=== PATIENT | male | born 1970 | race Caucasian/White ===

== ENCOUNTER → 2018-05-19 07:51 | Outpatient (CLI) | payer BC, SELFPAY ==
--- NOTE | 2018-05-19 07:57 | US_ITS ---
US abdomen limited History:Nausea, vomiting, upper abdominal discomfort Ordering Physician:Link Razo MD Patient Age: 47 years Comparison:None Findings: Pancreas:Unremarkable. No obvious mass or abnormal fluid collection. No ductal dilatation Liver:No focal liver lesions demonstrated. Homogeneous echogenicity. No intrahepatic biliary ductal dilatation evident Right Kidney:Unremarkable. Normal size and echogenicity. No hydronephrosis Gallbladder:No gallstones, gallbladder wall thickening, pericholecystic fluid, or biliary dilatation. There is sludge present within the gallbladder. Impression: 1. No gallstones, gallbladder wall thickening, pericholecystic fluid, or biliary ductal dilatation. 2. Gallbladder sludge is present
== END ==
PROVIDERS: Family Provider Family Medicine; PCP Family Medicine; Visit Provider Family Medicine
DX: R10.13 Epigastric pain (principal); R11.2 Nausea with vomiting, unspecified
CPT/HCPCS: 76705

== ENCOUNTER → 2018-06-04 10:14 | Outpatient (CLI) | payer BC, SELFPAY ==
--- NOTE | 2018-06-04 10:45 | NM_ITS ---
NM hepatobiliary w pharm HISTORY: ITS.REASON: EPI PAIN AND GB SLUDGE ORDERING PHYSICIAN: Link Razo MD PATIENT AGE: 47 years COMPARISON: None DOSE: 8.52 mCi technetium Choletec The patient drank ensure for fatty meal. There was mild pain after the fatty meal FINDINGS: Homogeneous activity is present within the hepatic parenchyma. Activity is present in the gallbladder by 15 minutes. Activity is present in the small bowel by 30 minutes. The gallbladder ejection fraction is calculated to be 95% The patient reported some mild pain during the fatty meal. IMPRESSION: Unremarkable hepatobiliary scan and gallbladder ejection fraction. No evidence of common or cystic duct obstruction with normal gallbladder ejection fraction
== END ==
PROVIDERS: Family Provider Family Medicine; PCP Family Medicine; Visit Provider Family Medicine
DX: R10.13 Epigastric pain (principal); K82.8 Other specified diseases of gallbladder
CPT/HCPCS: 78227; A9537

== ENCOUNTER → 2019-04-16 12:20 | Outpatient (CLI) | payer OTHER, SELFPAY ==
--- NOTE | 2019-04-16 12:59 | MR_ITS ---
MR head/brain wo/w con HISTORY: Slurred speech, right-sided weakness, balance, previous stroke ITS.REASON: RIGHT SIDED WEAKNESS ORDERING PHYSICIAN: NATHALY Vargas PATIENT AGE: 48 years Comparison: 04/15/2019 CT 08/17/2014 MRI TECHNIQUE: Standard multiplanar multiecho sequences are performed without and with gadolinium enhancement. FINDINGS: No midline shift or mass effect is evident. There are several areas of increased diffusion signal. There is a small linear area of increased diffusion signal in the left parietal lobe as well as a small focus of increased diffusion signal in the left thalamus laterally and in the left posterior parietal cortex medially. These areas are consistent with small areas of acute infarction. The multiple areas of distribution would suggest a possible embolic phenomenon. These areas do not show contrast enhancement and have developed since the previous exam. There are other abnormal areas as well including an ill-defined area of increased T2 signal in the left aspect of the corpus callosum measuring 9 mm. This does not show contrast enhancement. There is an additional area of increased T2 signal in the periventricular region on the right involving the right aspect of the corpus callosum with some ringlike enhancement. This area measures 11 x 8 mm. Central aspect of this region shows slight increased diffusion signal with hypointense ADC signal. In addition, there is a small focus of increased T2 signal involving the right roper radiata without restricted diffusion. There are other areas of periventricular and subcortical T2 white matter hyperintensity. There is involvement of the corpus callosum in the central and anterior aspect. Scattered areas of increased T2 also involves the deon. The upper cervical cord has an unremarkable appearance. No hydrocephalus. No midline shift. There is fluid signal within the right mastoid sinus. IMPRESSION: 1. Abnormal MRI of the brain. There are several small foci of respected diffusion which are in the left parietal lobe and left basal ganglia consistent with small areas of acute infarction. Embolic phenomenon is considered 2. In addition, there are abnormal white matter changes with lesions in the left aspect of the corpus callosum posteriorly and an enhancing lesion in the right aspect of the corpus callosum anteriorly. There is increased T2 signal involving the mid and anterior aspect of the corpus callosum. These findings are suspicious for multiple sclerosis.. Metastatic disease would be included in the differential diagnosis. 3. There are other periventricular and white matter ischemic gliotic changes noted as well. 4. Recommend neurological consult for further evaluation.
[2019-04-16 13:11] LABS: Blood Urea Nitrogen 21 mg/dL (7-18); Creatinine,Serum 1.23 mg/dL (0.70-1.30); Estimated Glomerular Filt Rate 63 ml/min (>60); GFR (African American) 76 ML/MIN (>60)
== END ==
PROVIDERS: PCP Family Medicine; Visit Provider Physician Assistant
DX: R53.1 Weakness (principal)
CPT/HCPCS: 36415; 70553; 82565; 84520

== ENCOUNTER → 2019-06-17 09:42 | Outpatient (CLI) | payer OTHER, SELFPAY ==
--- NOTE | 2019-06-17 09:48 | MR_ITS ---
MR head/brain wo/w con HISTORY: Right-sided weakness, slurred speech, weakness, recent stroke ITS.REASON: RIGHT SIDED WEAKNESS ORDERING PHYSICIAN: NATHALY Vargas PATIENT AGE: 48 years Comparison: 04/16/2019 TECHNIQUE: Standard multiplanar multiecho sequences are performed without and with gadolinium enhancement. FINDINGS: There is a new small lobular area of restricted diffusion within the left aspect of the deon centrally medial to the red nucleus consistent with an area of acute lacunar infarction measuring 8 x 5 mm. This was not present on 04/16/2019. This is isointense on T1 and shows slight increased T2 signal. This is hypointense on the ADC images. Small area of slight increased diffusion signal is noted within the left thalamus laterally and within the head of the caudate on the right as before slightly less intense consistent with areas of subacute infarction. No acute hemorrhage evident. Scattered areas of increased T2 signal are noted within the deon, left inferior cerebellar hemisphere, periventricular and subcortical white matter similar to the previous exam. Abnormal signal intensity noted within the corpus callosum as before and within the periventricular white matter which is suspicious for multiple sclerosis. No enhancing lesions are evident. IMPRESSION: 1. There is an acute lacunar infarction within central aspect of the deon on the left medial to the red nucleus. 2. Subacute lacunar infarctions of the left basal ganglia and right head of the caudate. 3. Periventricular ischemic gliotic change 4. Multiple lesions of the corpus callosum and periventricular white matter suspicious for multiple sclerosis.
[2019-06-17 10:20] LABS: Blood Urea Nitrogen 30 mg/dL (7-18); Creatinine,Serum 1.66 mg/dL (0.70-1.30); Estimated Glomerular Filt Rate 44 ml/min (>60); GFR (African American) 54 ML/MIN (>60)
== END ==
PROVIDERS: PCP Physician Assistant; Visit Provider Physician Assistant
DX: R53.1 Weakness (principal)
CPT/HCPCS: 36415; 70553; 82565; 84520; A9576

== ENCOUNTER 2019-06-17 11:57 | Inpatient (IN) ==
--- NOTE | 2019-06-17 12:46 | Emergency Department Note ---
ED Disposition Clinical Impression: Acute CVA (cerebrovascular accident) Diabetic ketoacidosis Qualifiers: Diabetes mellitus type: type 1 Diabetes mellitus complication detail: without coma Qualified Code(s): E10.10 - Type 1 diabetes mellitus with ketoacidosis without coma Disposition: Admitted As Inpatient Condition on Discharge: Fair - Critical Care Critical Care Time: Yes Attestation: On 06/17/19, the high probability of a clinically significant, sudden or life threatening deterioration of the following system(s) required my full and direct attention, intervention and personal management. The time I documented below is in addition to time spent performing reported procedures but includes the following listed in this critical care notation. Total Critical Care Time: 45 Vital system(s) involved:: Metabolic Failure My critical care processes included: Assessment & monitoring of V/S, Initial and Re-exams, Data Review/Interpretation, Coordinating Care, Medication Orders and management, Documentation Medical Decision Making - Bryant Inquiry Pt receiving controlled substance: No Vital Signs: 06/17/19 12:12 06/17/19 12:48 Temperature 97.9 F Temperature Source Oral Pulse Rate [Left Radial] 84 62 Respiratory Rate 20 Blood Pressure [Right Arm] 159/84 H 148/74 H Blood Pressure Mean [Right Arm] 109 98 Blood Pressure Source [Right Arm] Automatic Cuff Blood Pressure Position [Right Arm] Sitting 02 Sat by Pulse Oximetry 97 100 Oxygen Delivery Method Room Air - Lab Data Lab Results 06/17/19 12:11: POC Glucose 600 H* 06/17/19 12:30: Phosphorus 3.6, Magnesium 2.1 06/17/19 12:48: VBG pH 7.28 L, VBG pCO2 51.8 H, VBG pO2 86.6 H, VBG HCO3 24.0, VBG Total CO2 25.6, VBG O2 Saturation 95.3 H, VBG Base Excess -2.7 L 06/17/19 12:49: WBC 7.0, RBC 4.33 L, Hgb 12.8 L, Hct 40.4 L, MCV 93.2, MCH 29.5, MCHC 31.7 L, RDW 13.1, Plt Count 186, MPV 8.2, Neut % (Auto) 74.3, Lymph % (Auto) 19.9, [place] % (Auto) 3.3, Eos % (Auto) 1.3, Baso % (Auto) 1.2, Neut # (A uto) 5.2, Lymph # (Auto) 1.4, [place] # (Auto) 0.2, Eos # (Auto) 0.1, Baso # (Auto) 0.1 06/17/19 12:49: Sodium 129 L, Potassium 5.4 H, Chloride 93 L, Carbon Dioxide 22 D, Anion Gap 19.4 H, BUN 30 H, Creatinine 1.70 H, Estimated Creat Clear 56, Estimated GFR 43 L, Est GFR ( Amer) 52 L, Glucose 610 H*, Calcium 9.5, Total Bilirubin 0.7, AST 11 L D, ALT 29, Alkaline Phosphatase 126 H, Total Prote in 7.0, Albumin 3.9, Globulin 3.1, Albumin/Globulin Ratio 1.3, Acetone Level Small 06/17/19 12:49: Urine Color Yellow, Urine Appearance Clear, Urine pH 5.5, Ur Specific [place] <= 1.005, Urine Protein Trace, Urine Glucose (UA) 3+, Urine Ketones 1+, Urine Blood Trace-i, Urine Nitrate Negative, Urine Bilirubin Negative, Urine Urobilinogen 0.2, Ur Leukocyte Esterase Negative, Urine RBC Occasional, Urine Bacteria Trace Result diagrams: 06/17/19 12:49 06/17/19 12:49 Orders (Tests/Meds): ED MEDICATIONS Generic Name Dose Route Start Last Admin Trade Name Rajeshq PRN Reason Stop Dose Admin Aspirin 81 mg 06/17/19 21:00 Aspirin 81mg Chewable Tablet PO 07/17/19 20:59 HS [facility] Clopidogrel Bisulfate 75 mg 06/17/19 21:00 Plavix 75mg Tablet PO 07/17/19 20:59 HS [facility] Insulin Human Regular 100 unit 101 mls @ 7.559 mls/hr 06/17/19 14:33 / Sodium Chloride IV 07/17/19 13:44 .[id number] RAMESH Protocol 0.1 UNITS/KG/HR Sodium Chloride 1,000 mls @ 150 mls/hr 06/17/19 14:33 Sod Chlor 0.9% 1000ml Bag IV 07/17/19 14:32 .[id number] RAMESH Non-Formulary Medication 80 mg 06/18/19 09:00 Atorvastatin Calcium [Atorvastatin 80mg Tab] PO 07/18/19 08:59 DAILY RAMESH Non-Formulary Medication 40 mg 06/18/19 09:00 Duloxetine Hcl PO 07/18/19 08:59 DAILY RAMESH Discontinued Medications Generic Name Dose Route Start Last Admin Trade Name Stas IRWINN Reason Stop Dose Admin Sodium Chloride 1,000 mls @ 999 mls/hr 06/17/19 12:30 06/17/19 12:50 Sod Chlor 0.9% 1000ml Bag IV 06/17/19 13:30 999 mls/hr .Q1H1M RAMESH Administration Insulin Human Regular 100 unit 101 mls @ 7.559 mls/hr 06/17/19 13:45 06/17/19 14:26 / Sodium Chloride IV 07/17/19 13:44 7.559 mls/hr .[id number] RAMESH Administration Protocol 0.1 UNITS/KG/HR ORDERS Category Date Time Status Basic Metabolic Panel Q12H Lab 06/18/19 06:00 Ordered Basic Metabolic Panel Q12H Lab 06/18/19 18:00 Ordered Basic Metabolic Panel Q12H Lab 06/19/19 06:00 Ordered Basic Metabolic Panel Q4H Lab 06/17/19 14:36 Received Basic Metabolic Panel Q4H Lab 06/17/19 18:33 Ordered Basic Metabolic Panel Q4H Lab 06/17/19 22:33 Ordered Basic Metabolic Panel Q4H Lab 06/18/19 02:33 Ordered - CT Data CT Scan: Head Time Received: 13:[address] Reviewed: Yes: I have viewed the radiologist's interpretation Findings Narrative: IMPRESSION: 1. Old bilateral lacunar infarctions. 2. No acute intracranial hemorrhage Dictated By: Tristen Gomez MD 06/17/19 1228 - Physician Consults Physician Consulted: [facility] stroke team Time: 13:55 Reason -: Neurological Eval/Care Comment/Response: States the patient does not need to be transferred to [facility]. Can be admitted here for treatment of his DKA. No change in his platelet therapy or any other stroke management needed at this time. Can follow-up in their clinic as an outpatient. Additional Consult: Og Chavez Time: 14:18 Reason -: Admission Comment/Response: Agrees to admit the patient to the hospital. We discussed the patient's clinical information, including history, exam, laboratory and radiology results and ED course. Per hospital procedure, I will write temporary bridge inpatient orders on the patient. Specific orders requested by the admitting physician: DKA protocol Additional Consult: Dung Time: 14:44 Reason -: Admission Comment/Response: The patient is listed as being Dr. Chavez's patient on our track board, but he actually is Dr. Razo's patient. Admission will be changed to Dr. Razo rather than Dr. Chavez. Case discussed. Medical Decision Narrative: MRI brain, outpatient study today: IMPRESSION: 1. There is an acute lacunar infarction within central aspect of the deon on the left medial to the red nucleus. 2. Subacute lacunar infarctions of the left basal ganglia and right head of the caudate. 3. Periventricular ischemic gliotic change 4. Multiple lesions of the corpus callosum and periventricular white matter suspicious for multiple sclerosis. Dictated By: Tristen Gomez MD 06/17/19 1221 General Adult HPI - General Chief complaint: Altered Mental Status Stated complaint: CASSI on Friday and pupils are different sizes Time Seen by Provider: 06/17/19 12:43 Mode of Arrival: Ambulatory Limitations: No Limitations Description of Symptoms (Recalled from ER Triage Doc. by RN): family states that pt had a TIA last Friday, was here this morning getting an MRI when the noticed that his pupils were different sizes. States he has been sluggish and like it takes a moment to say what the wants to say. - History of Present Illness HPI narrative: Patient brought in by his . He was having a brain MRI today when the turfgrass technician noticed that his pupils were of unequal size. His called the stroke team at [facility] and was advised to bring him to the closest emergency department. He was seen by me in this emergency department 2 days ago. At that time he was having some thick tongue speech and some difficulty with ambulation, blurry vision and diplopia with distant vision. CT scan showed nothing acute. Case was discussed with stroke team at [facility] and with his primary care provider. The patient declined admission to the hospital and arrangements were were made for outpatient follow-up. He was seen in the primary care provider's office yesterday and had his MRI scan of the brain today. He says his symptoms are unchanged since 2 days ago. His says he actually was better yesterday. He has had previous strokes. He had 2 strokes earlier this year. He was hospitalized at [facility]. He has residual right hemiparesis. He has residual intermittent problems with speech and ambulation. He is getting physical therapy for these problems. The patient is diabetic. His blood sugar was in the 200s yesterday. He uses Tresiba insulin twice a day, 30 units. He uses a sliding scale with each meal. He has not checked his blood sugar today. He is only eaten a banana today. He has not used any insulin today. - Related Data Home Medications Medication Instructions Recorded Confirmed Atorvastatin Calcium [Atorvastatin 80 mg PO DAILY 04/15/19 06/17/19 80mg Tab] Clopidogrel Bisulfate [Plavix 75mg 75 mg PO DAILY 04/15/19 06/17/19 Tab] Duloxetine HCl 40 mg PO DAILY 04/15/19 06/17/19 Insulin Degludec [Tresiba 100 unit SQ DAILY 04/15/19 06/17/19 Flextouch U-100] Insulin Aspart [Novolog] 14 unit SQ TID 06/06/19 06/17/19 [place]-3 Fatty Acids [Fish Oil] 300 mg PO DAILY 06/15/19 06/17/19 raNITIdine HCl [Ranitidine HCl] 150 mg PO DAILY 06/15/19 06/17/19 Allergies Allergy/AdvReac Type Severity Reaction Status Date / Time No Known Allergies Allergy Verified 04/15/19 09:01 [facility] History - Hepatitis A Screen Drug use history?: No High risk sexual behaviors?: No History of sexually transmitted infection?: No Currently employed?: No Childcare worker?: No Do you have indoor plumbing?: Yes Do you have electricity?: Yes Attestation statement:: This patient has been screened for Hepatitis A risk factors. I have reviewed the patient's past medical history: Yes Medical History: Reports:: Diabetes Mellitus Type 2 - Social History Smoking Status: Current every day smoker Tobacco Type: cigarettes # Packs/Day (cigarettes): 2 Alcohol Intake: never Occupational Status: employed, other ROS Obtained: Yes All systems reviewed & no additional complaints - Constitutional Constitutional: Denies fever(s) - Eyes Eyes: Reports blurry vision, Reports diplopia - Cardiovascular Cardiovascular: Denies chest pain - Respiratory Respiratory: No dyspnea - Gastrointestinal Gastrointestingal: Denies: abdominal pain, diarrhea, vomiting - Neurologic Neurologic: Reports unsteadiness, Reports focal weakness (Chronic right hemiparesis), Denies headache(s) Physical Exam - General General appearance: alert, in no apparent distress - Head Head exam: atraumatic, normocephalic - Eye Eye exam: Present: EOMI, other (Right pupil 1-2 mm. Left pupil 3-4 mm. Reactive.) - ENT ENT exam: Present: mucous membranes dry - Neck Neck exam: Present: normal inspection, trachea midline - Chest Chest inspection: Present: normal inspection, symmetric chest wall rise - Respiratory Respiratory exam: Present: normal lung sounds bilaterally. Absent: respiratory distress - Cardiovascular Cardiovascular exam: Present: regular rate, normal rhythm, normal heart sounds - Abdominal Exam Abdominal exam: Present: soft, normal bowel sounds. Absent: distention, tenderness - Extremities Exam Extremities exam: Present: normal inspection - Neurological Exam Neurological exam: Present: alert, oriented X3 - Psychiatric Psychiatric exam: Present: normal affect, normal mood - Skin Skin exam: Present: warm, dry
[2019-06-17 12:54] LABS: Microscopic, Urine URINE MICROSCOPIC (MICROSCOPIC)
[2019-06-17 12:55] LABS: Appearance,Urine CLEAR (Clear); Bilirubin,Urine Negative (Negative); Blood, Urine TRACE-I (Negative); Color,Urine YELLOW (Yellow); Glucose,Urine (UA) 3+ (Negative); Ketones,Urine 1+ (Negative); Leukocyte Esterase,Urine Negative (Negative); PH,Urine 5.5 (5.0-8.5); Protein,Urine TRACE (Negative); Specific Gravity, Urine <= 1.005 (1.005-1.030); Urobilinogen,Urine 0.2 EU/dl (0.2)
[2019-06-17 12:57] LABS: Basophils # 0.1 K/mm3 (0-0.2); Basophils % 1.2 % (0.1-2.0); Eosinophils # 0.1 K/mm3 (0.0-0.4); Eosinophils % 1.3 % (0.1-12.0); Hematocrit 40.4 % (42.0-52.0); Hemoglobin 12.8 g/dL (14.1-18.0); Lymphocytes # 1.4 K/mm3 (0.7-4.5); Lymphocytes % 19.9 % (10-50); Mean Corpuscular HGB Conc 31.7 g/dL (31.8-35.4); Mean Corpuscular Volume 93.2 fl (80-94); Mean Platelet Volume 8.2 fl (7.4-10.4); Monocytes # 0.2 K/mm3 (0.1-1.0); Monocytes % 3.3 % (1.7-9.3); Neutrophils # 5.2 K/mm3 (1.8-7.8); Neutrophils % 74.3 % (37.0-80.0); Platelet Count 186 K/mm3 (142-424); Red Blood Count 4.33 M/mm3 (4.60-6.20); Red Cell Distribution Width 13.1 % (11.5-17.5)
[2019-06-17 13:00] LABS: Bacteria,Urine Trace /lpf; RBC,Urine Occasional #/hpf (0-3)
[2019-06-17 13:03] LABS: VBG Base Excess -2.7 mmol/L (-2.4-2.3); VBG Oxygen Saturation 95.3 % (50-70); VBG PCO2 51.8 mmol/L (35-51); VBG PH 7.28 mmol/L (7.31-7.41); VBG PO2 86.6 mmol/L (28-40); VBG Total CO2 25.6 mmol/L (23-27)
[2019-06-17 13:10] LABS: Alanine Aminotransferase 29 U/L (12-78); Albumin Level 3.9 gm/dL (3.4-5.0); Albumin/Globulin Ratio 1.3 (1.1-1.8); Alkaline Phosphatase 126 U/L (46-116); Anion Gap 19.4 mEq/L (5-15); Aspartate Amino Transferase 11 U/L (15-37); Bilirubin,Total 0.7 mg/dL (0.2-1.0); Blood Urea Nitrogen 30 mg/dL (7-18); Calcium 9.5 mg/dL (8.5-10.1); Carbon Dioxide 22 mmol/L (21.0-32.0); Chloride 93 mmol/L (98-107); Globulin 3.1 gm/dl (1.3-3.2); Sodium 129 mmol/L (136-145)
[2019-06-17 13:13] LABS: Glucose 610 mg/dL (74-106)
[2019-06-17 13:14] LABS: Acetone, Serum (Rapid) Small (None Detect)
[2019-06-17 13:56] LABS: Phosphorous 3.6 mg/dL (2.4-4.9)
[2019-06-17 14:58] LABS: Anion Gap 19.1 mEq/L (5-15); Calcium 9.1 mg/dL (8.5-10.1)
--- NOTE | 2019-06-17 15:02 | History & Physical Report ---
*Admission Date: 06/17/19 <Yojana Cole - 06/17/19 15:06> *Chief complaint: right sided weakness, pupils unequal <Yojana Cole - 06/17/19 15:06> *History of present illness: Mr. Flores is a 48-year-old male who was just recently seen in the emergency room a few days ago. At that time he was having some slurred speech and difficulty with ambulation as well as right sided weakness. His felt he was having another stroke and took him to the emergency room. A CT scan showed nothing acute and the case was discussed with the stroke team at . They felt he would need an MRI but not a transfer. The patient declined admission and followed up in the office yesterday. It was felt he was having another stroke and an MRI with and without contrast was ordered of the brain for 06/17/2019. Yesterday in the office he was feeling a little bit better. His strength had improved slightly as had his balance. He states he began having double vision today before doing the MRI and the two way radio technician noticed that one pupil was smaller than the other. His called the stroke team at and they advised him to go to the closest emergency department, therefore he presented back to the ER. A repeat CT scan showed the old strokes but nothing acute. His glucose was 600 upon presentation to the ER and he did have acetone in his blood. He did not take his morning insulin. His MRI showed an acute lacunar infarction within the central aspect of the deon as well as subacute lacunar infarctions of the left basal ganglia and right head of the caudate. There were periventricular ischemic gliotic changes and multiple lesions of the corpus callosum and periventricular white matter suspicious for MS. The case was again discussed with the stroke team at and his MRI was reviewed with the physician at . They did not feel he would require transfer. They felt his normal medications could be continued and he would need a work-up for DKA. Of note he has had 2 strokes earlier this year and was hospitalized at the [facility]. He has some residual right hemiparesis and some residual problems with speech and ambulation. He is currently undergoing physical therapy. <Yojana Cole - 06/17/19 16:02> [facility] History I have reviewed the patient's past medical history: Yes <Yojana Cole 06/17/19 15:06> Medical History: Reports:: Anxiety, Cerebrovascular Accident, Diabetes Mellitus Type 1, Gall Bladder Disease, Gastroesophageal Reflux Disease(GERD), Hypertension <Yojana Cole 06/17/19 15:06> *Have you ever received a pneumonia vaccine?: No <Yojana Cole 06/17/19 15:06> *Have you received a flu vaccine this season?: No <Yojana Cole 06/17/19 15:06> Laterality Cases: Bilateral: Myringotomy (Ear Tubes), Tonsillectomy <Yojana Cole 06/17/19 15:06> Other Surgeries: Yes: Other (right forearm) <Yojana Cole 06/17/19 15:06> - *Social History Smoking Status: Current every day smoker <Yojana Cole 06/17/19 15:06> Tobacco Type: cigarettes <Yojana Cole 06/17/19 15:06> # Packs/Day (cigarettes): 1 <Yojana Cole 06/17/19 15:06> Alcohol Intake: never <Yojana Cole 06/17/19 15:06> *Occupational Status:: employed, other <Yojana Cole 06/17/19 15:06> *Travel in the last 8 weeks: None <Yojaan Cole 06/17/19 15:06> Family Hx:: Diabetes <Yojana Cole 06/17/19 16:02> Review of Systems - Constitutional Reports weakness (right side), Denies chills, Denies fever(s) <Yojana Cole 06/17/19 16:02> - Eyes Reports blurry vision, Reports double vision, Denies loss of vision <Yojana Cole 06/17/19 16:02> - ENT Denies nasal congestion, Denies sore throat <Yojana Cole 06/17/19 16:02> - *Cardiovascular Denies chest pain, Denies shortness of breath, Denies rapid, pounding, or irregular heartbeat <Yojana Cole 06/17/19 16:02> - *Respiratory Denies cough, Denies shortness of breath <Yojana Cole 06/17/19 16:02> - *Gastrointestinal Denies abdominal pain, Denies loose stools, Denies nausea, Denies vomiting <Yojana Cole - 06/17/19 16:02> - *Genitourinary Denies difficulty urinating, Denies painful urination <Yojana Cole - 06/17/19 16:02> - *Musculoskeletal Denies joint pain <Yojana Cole - 06/17/19 16:02> - *Neurologic Reports abnormal speech, Reports unsteadiness, Reports localized weakness (Chronic right hemiparesis but worse in the past few days), Denies headache(s) <Yojana Cole - 06/17/19 16:02> Meds Home Medications Medication Instructions Recorded Confirmed Type Atorvastatin Calcium [Atorvastatin 80 mg PO DAILY 04/15/19 06/17/19 History 80mg Tab] Clopidogrel Bisulfate [Plavix 75mg 75 mg PO DAILY 04/15/19 06/17/19 History Tab] Insulin Degludec [Tresiba 15 unit SQ BID 04/15/19 06/17/19 History Flextouch U-100] Insulin Aspart [Novolog] 14 unit SQ TID 06/06/19 06/17/19 History [place]-3 Fatty Acids [Fish Oil] 300 mg PO DAILY 06/15/19 06/17/19 History raNITIdine HCl [Ranitidine HCl] 150 mg PO DAILY 06/15/19 06/17/19 History Aspirin [Aspirin 81mg EC Tab] 81 mg PO DAILY 06/17/19 06/17/19 History Cholecalciferol (Vitamin D3) 5,000 unit PO DAILY 06/17/19 06/17/19 History [Vitamin D3] Duloxetine HCl 30 mg PO DAILY 06/17/19 06/17/19 History Montelukast Sodium [Montelukast 10 mg PO HS 06/17/19 06/17/19 History 10mg Tab] <Link Razo - 06/17/19 20:08> Allergies Allergy/AdvReac Type Severity Reaction Status Date / Time No Known Allergies Allergy Verified 04/15/19 09:01 <Link Razo - 06/17/19 20:08> Exam Vital signs and Labs for Last 24 Hours: Temp Pulse Resp BP Pulse Ox 97.9 F 77 19 152/86 H 97 06/17/19 15:48 06/17/19 16:00 06/17/19 16:00 06/17/19 16:00 06/17/19 16:32 Laboratory Results - last 24 hr 06/17/19 12:11: POC Glucose 600 H* 06/17/19 12:30: Phosphorus 3.6, Magnesium 2.1 06/17/19 12:48: VBG pH 7.28 L, VBG pCO2 51.8 H, VBG pO2 86.6 H, VBG HCO3 24.0, VBG Total CO2 25.6, VBG O2 Saturation 95.3 H, VBG Base Excess -2.7 L 06/17/19 12:49: WBC 7.0, RBC 4.33 L, Hgb 12.8 L, Hct 40.4 L, MCV 93.2, MCH 29.5, MCHC 31.7 L, RDW 13.1, Plt Count 186, MPV 8.2, Neut % (Auto) 74.3, Lymph % (Auto) 19.9, Stephens % (Auto) 3.3, Eos % (Auto) 1.3, Baso % (Auto) 1.2, Neut # (Au to) 5.2, Lymph # (Auto) 1.4, Stephens # (Auto) 0.2, Eos # (Auto) 0.1, Baso # (Auto) 0.1 06/17/19 12:49: Sodium 129 L, Potassium 5.4 H, Chloride 93 L, Carbon Dioxide 22 D, Anion Gap 19.4 H, BUN 30 H, Creatinine 1.70 H, Estimated Creat Clear 56, Estimated GFR 43 L, Est GFR ( Amer) 52 L, Glucose 610 H*, Calcium 9.5, Total Bilirubin 0.7, AST 11 L D, ALT 29, Alkaline Phosphatase 126 H, Total Protein 7.0, Albumin 3.9, Globulin 3.1, Albumin/Globulin Ratio 1.3, Acetone Level Small 06/17/19 12:49: Urine Color Yellow, Urine Appearance Clear, Urine pH 5.5, Ur Specific [place] <= 1.005, Urine Protein Trace, Urine Glucose (UA) 3+, Urine Ketones 1+, Urine Blood Trace-i, Urine Nitrate Negative, Urine Bilirubin Negative, Urine Urobilinogen 0.2, Ur Leukocyte Esterase Negative, Urine RBC Occasional, Urine Bacteria Trace 06/17/19 14:36: Sodium 132 L, Potassium 5.1, Chloride 96 L, Carbon Dioxide 22, Anion Gap 19.1 H, BUN 30 H, Creatinine 1.69 H, Estimated Creat Clear 56, Estimated GFR 43 L, Est GFR ( Amer) 52 L, Glucose 555 H*, Calcium 9.1 06/17/19 15:32: POC Glucose 491 H* 06/17/19 16:05: POC Glucose 431 H* 06/17/19 17:58: POC Glucose 386 H* 06/17/19 18:33: Sodium 136, Potassium 4.1, Chloride 101, Carbon Dioxide 27 D, Anion Gap 12.1, BUN 26 H, Creatinine 1.41 H, Estimated Creat Clear 62, Estimated GFR 53 L, Est GFR ( Amer) 65 D, Glucose 354 H D, Calcium 9.0 <[place],Link - 06/17/19 20:08> Temp Pulse Resp BP Pulse Ox 97.9 F 62 20 148/74 H 100 06/17/19 12:12 06/17/19 12:48 06/17/19 12:12 06/17/19 12:48 06/17/19 12:48 Laboratory Results - last 24 hr 06/17/19 12:11: POC Glucose 600 H* 06/17/19 12:30: Phosphorus 3.6, Magnesium 2.1 06/17/19 12:48: VBG pH 7.28 L, VBG pCO2 51.8 H, VBG pO2 86.6 H, VBG HCO3 24.0, VBG Total CO2 25.6, VBG O2 Saturation 95.3 H, VBG Base Excess -2.7 L 06/17/19 12:49: WBC 7.0, RBC 4.33 L, Hgb 12.8 L, Hct 40.4 L, MCV 93.2, MCH 29.5, MCHC 31.7 L, RDW 13.1, Plt Count 186, MPV 8.2, Neut % (Auto) 74.3, Lymph % (Auto) 19.9, Stephens % (Auto) 3.3, Eos % (Auto) 1.3, Baso % (Auto) 1.2, Neut # (Auto) 5.2, Lymph # (Auto) 1.4, Stephens # (Auto) 0.2, Eos # (Auto) 0.1, Baso # (Auto) 0.1 06/17/19 12:49: Sodium 129 L, Potassium 5.4 H, Chloride 93 L, Carbon Dioxide 22 D, Anion Gap 19.4 H, BUN 30 H, Creatinine 1.70 H, Estimated Creat Clear 56, Estimated GFR 43 L, Est GFR ( Amer) 52 L, Glucose 610 H*, Calcium 9.5, Total Bilirubin 0.7, AST 11 L D, ALT 29, Alkaline Phosphatase 126 H, Total Protein 7.0, Albumin 3.9, Globulin 3.1, Albumin/Globulin Ratio 1.3, Acetone Level Small 06/17/19 12:49: Urine Color Yellow, Urine Appearance Clear, Urine pH 5.5, Ur Specific [place] <= 1.005, Urine Protein Trace, Urine Glucose (UA) 3+, Urine Ketones 1+, Urine Blood Trace-i, Urine Nitrate Negative, Urine Bilirubin Negative, Urine Urobilinogen 0.2, Ur Leukocyte Esterase Negative, Urine RBC Occasional, Urine Bacteria Trace <Yojana Cole - 06/17/19 15:06> I & O for Last 24 hours: Intake & Output 06/14/19 06/15/19 06/16/19 06/17/19 23:59 23:59 23:59 23:59 Intake Total 1447 / 1447 Output Total 695 / 695 Balance 752 / 752 Weight 152 lb 8 oz <Link Razo - 06/17/19 20:08> Intake & Output 06/15/19 06/16/19 06/17/19 06/18/19 11:59 11:59 11:59 11:59 Weight 165 lb <Yojana Cole - 06/17/19 15:06> - Constitutional no acute distress <Yojana Cole - 06/17/19 16:02> - *Routine HEENT Exam Head: Present: normocephalic <Yojana Cole - 06/17/19 16:02> Eye: Present: EOMI (right pupil is smaller than the left) <Yojana Cole - 06/17/19 16:02> ENT: Present: mucous membranes dry <Yojana Cole - 06/17/19 16:02> - *Routine Neck Exam Present: supple. Absent: lymphadenopathy <Yojana Cole 06/17/19 16:02> - *Routine Respiratory Exam Present: CTA bilaterally <Yojana Cole 06/17/19 16:02> - *Routine Cardiovascular Exam Present: RRR <Yojana Cole 06/17/19 16:02> - *Routine Abdominal Exam Present: soft, normoactive bowel sounds. Absent: tenderness <Yojana Cole 06/17/19 16:02> - *Routine Extremities Exam Absent: cyanosis, clubbing, edema <Yojana Cole 06/17/19 16:02> - *Routine Skin Exam Present: warm. Absent: rash <Yojana Cole 06/17/19 16:02> - *Routine Neurological Exam Present: alert, oriented X3, motor deficit (on the right) <Yojana Cole 06/17/19 16:02> speech is still slightly slurred <Yojana Cole 06/17/19 16:02> H&P: Result - Impressions Head CT 1. Old bilateral lacunar infarctions. 2. No acute intracranial hemorrhage MRI brain, outpatient study today: 1. There is an acute lacunar infarction within central aspect of the deon on the left medial to the red nucleus. 2. Subacute lacunar infarctions of the left basal ganglia and right head of the caudate. 3. Periventricular ischemic gliotic change 4. Multiple lesions of the corpus callosum and periventricular white matter suspicious for multiple sclerosis. <Yojana Cole 06/17/19 16:02> Assessment and Plan (1) Acute CVA (cerebrovascular accident) Current visit: Yes Status: Acute Category: Medical Code(s): I63.9 - Cerebral infarction, unspecified (2) Diabetic ketoacidosis Current visit: Yes Status: Acute Qualifiers: Diabetes mellitus type: type 1 Diabetes mellitus complication detail: without coma Qualified Code(s): E10.10 - Type 1 diabetes mellitus with ketoacidosis without coma Category: Medical Code(s): E11.10 - Type 2 diabetes mellitus with ketoacidosis without coma (3) IDDM (insulin dependent diabetes mellitus) Current visit: No Status: Acute Category: Medical Code(s): E11.9 - Type 2 diabetes mellitus without complications; Z79.4 - FPC (current) use of insulin (4) History of CVA (cerebrovascular accident) Current visit: Yes Status: Acute Category: Medical Code(s): Z86.73 - Personal history of transient ischemic attack (TIA), and cerebral infarction without residual deficits (5) Hypertension Current visit: Yes Status: Chronic Category: Medical Code(s): I10 - Essential (primary) hypertension <Link Razo - 06/17/19 20:08> (1) Acute CVA (cerebrovascular accident) Current visit: Yes Status: Acute Category: Medical Code(s): I63.9 - Cerebral infarction, unspecified (2) Diabetic ketoacidosis Current visit: Yes Status: Acute Qualifiers: Diabetes mellitus type: type 1 Diabetes mellitus complication detail: without coma Qualified Code(s): E10.10 - Type 1 diabetes mellitus with ketoacidosis without coma Category: Medical Code(s): E11.10 - Type 2 diabetes mellitus with ketoacidosis without coma (3) IDDM (insulin dependent diabetes mellitus) Current visit: No Status: Acute Category: Medical Code(s): E11.9 - Type 2 diabetes mellitus without complications; Z79.4 - terminal carman (current) use of insulin (4) History of CVA (cerebrovascular accident) Current visit: Yes Status: Acute Category: Medical Code(s): Z86.73 - Pers onal history of transient ischemic attack (TIA), and cerebral infarction without residual deficits (5) Hypertension Current visit: Yes Status: Chronic Category: Medical Code(s): I10 - Essential (primary) hypertension <Yojana Cole - 06/17/19 15:47> - Assessment and plan all Dx Assessment and Plan for all problems:: Saw patient, agree with above note. <Link Razo - 06/17/19 20:08> The patient was admitted and started on insulin as well as IV fluids and some of his home medications. Will discuss further care with Dr. Razo. <Yojana Cole - 06/17/19 16:02>
--- NOTE | 2019-06-17 16:20 | Pharmacy Consult Notes ---
[facility] Pharmacy VTE Monitoring - Patient Demographics Admission date: 06/17/19 Report Date: 06/17/19 Time: 16:19 Allergies/Adverse Reactions: Patient Allergies No Known Allergies Allergy (Verified 04/15/19 09:01) Height: 1.73 m Weight: 69.173 kg Patient Problems: Current Active Problems (Updated 06/17/19 @ 15:06 by NATHALY Vargas) Diabetic ketoacidosis (Acute) Acute CVA (cerebrovascular accident) (Acute) History of CVA (cerebrovascular accident) (Acute) Hypertension (Chronic) - VTE Risk Labs: VTE Related Lab Results Hgb 12.8 g/dL (14.1-18.0) L 06/17/19 12:49 Hct 40.4 % (42.0-52.0) L 06/17/19 12:49 Plt Count 186 K/mm3 (142-424) 06/17/19 12:49 BUN 30 mg/dL (7-18) H 06/17/19 14:36 Creatinine 1.69 mg/dL (0.70-1.30) H 06/17/19 14:36 Estimated Creat Clear 56 mL/min (50-200) 06/17/19 14:36 Was VTE Risk Assessment Performed: Yes VTE Risk Level: Low Risk Clinical Trial Participant: No - Prophylaxis VTE Prophylaxis Ordered?: Yes Types of VTE Prophylaxis: TEDS Knee High
[2019-06-17 18:52] LABS: Anion Gap 12.1 mEq/L (5-15)
[2019-06-17 22:36] LABS: Calcium 9.1 mg/dL (8.5-10.1)
[2019-06-18 02:47] LABS: Anion Gap 10.5 mEq/L (5-15); Calcium 8.6 mg/dL (8.5-10.1)
[2019-06-18 06:12] LABS: Anion Gap 11.7 mEq/L (5-15); Calcium 8.6 mg/dL (8.5-10.1)
--- NOTE | 2019-06-18 08:20 | Progress Note ---
<Yojana Cole - Last Filed: 06/18/19 08:17> Internal Medicine - PN: Subj *Date: 06/18/19 *Time: 08:17 Interval history: Patient states he is feeling much better today. He wants to go home. He states he slept well last night and ate a good breakfast this morning. He denies any pain. He states his weakness is improving on the right side. Exam Vital signs and Labs for Last 24 Hours: Temp Pulse Resp BP Pulse Ox 98.8 F 72 16 160/83 H 99 06/18/19 07:48 06/18/19 06:00 06/18/19 06:00 06/18/19 06:00 06/18/19 06:00 Laboratory Results - last 24 hr 06/17/19 12:11: POC Glucose 600 H* 06/17/19 12:30: Phosphorus 3.6, Magnesium 2.1 06/17/19 12:48: VBG pH 7.28 L, VBG pCO2 51.8 H, VBG pO2 86.6 H, VBG HCO3 24.0, VBG Total CO2 25.6, VBG O2 Saturation 95.3 H, VBG Base Excess -2.7 L 06/17/19 12:49: WBC 7.0, RBC 4.33 L, Hgb 12.8 L, Hct 40.4 L, MCV 93.2, MCH 29.5, MCHC 31.7 L, RDW 13.1, Plt Count 186, MPV 8.2, Neut % (Auto) 74.3, Lymph % (Auto) 19.9, Bremer % (Auto) 3.3, Eos % (Auto) 1.3, Baso % (Auto) 1.2, Neut # (Auto) 5.2, Lymph # (Auto) 1.4, Bremer # (Auto) 0.2, Eos # (Auto) 0.1, Baso # (Auto) 0.1 06/17/19 12:49: Sodium 129 L, Potassium 5.4 H, Chloride 93 L, Carbon Dioxide 22 D, Anion Gap 19.4 H, BUN 30 H, Creatinine 1.70 H, Estimated Creat Clear 56, Estimated GFR 43 L, Est GFR ( Amer) 52 L, Glucose 610 H*, Calcium 9.5, Total Bilirubin 0.7, AST 11 L D, ALT 29, Alkaline Phosphatase 126 H, Total Protein 7.0, Albumin 3.9, Globulin 3.1, Albumin/Globulin Ratio 1.3, Acetone Level Small 06/17/19 12:49: Urine Color Yellow, Urine Appearance Clear, Urine pH 5.5, Ur Specific Drury <= 1.005, Urine Protein Trace, Urine Glucose (UA) 3+, Urine Ketones 1+, Urine Blood Trace-i, Urine Nitrate Negative, Urine Bilirubin Negative, Urine Urobilinogen 0.2, Ur Leukocyte Esterase Negative, Urine RBC Occasional, Urine Bacteria Trace 06/17/19 14:23: POC Glucose > 600 H* 06/17/19 14:36: Sodium 132 L, Potassium 5.1, Chloride 96 L, Carbon Dioxide 22, Anion Gap 19.1 H, BUN 30 H, Creatinine 1.69 H, Estimated Creat Clear 56, Estimated GFR 43 L, Est GFR ( Amer) 52 L, Glucose 555 H*, Calcium 9.1 06/17/19 15:32: POC Glucose 491 H* 06/17/19 16:05: POC Glucose 431 H* 06/17/19 17:58: POC Glucose 386 H* 06/17/19 18:33: Sodium 136, Potassium 4.1, Chloride 101, Carbon Dioxide 27 D, Anion Gap 12.1, BUN 26 H, Creatinine 1.41 H, Estimated Creat Clear 62, Estimated GFR 53 L, Est GFR ( Amer) 65 D, Glucose 354 H D, Calcium 9.0 06/17/19 19:53: POC Glucose 311 H* 06/17/19 22:01: POC Glucose 200 H 06/17/19 22:20: Sodium 136, Potassium 4.0, Chloride 102, Carbon Dioxide 29, Anion Gap 9.0, BUN 23 H, Creatinine 1.33 H, Estimated Creat Clear 66, Estimated GFR 57 L, Est GFR ( Amer) 69, Glucose 231 H D, Calcium 9.1 06/17/19 22:57: POC Glucose 205 H 06/17/19 23:52: POC Glucose 126 H 06/18/19 00:54: POC Glucose 109 06/18/19 01:58: POC Glucose 79 06/18/19 02:30: Sodium 138, Potassium 3.5, Chloride 105, Carbon Dioxide 26, Anion Gap 10.5, BUN 19 H, Creatinine 1.12, Estimated Creat Clear 78, Estimated GFR 70, Est GFR ( Amer) 84 D, Glucose 84 D, Calcium 8.6 06/18/19 02:30: Acetone Level None detected 06/18/19 02:59: POC Glucose 90 06/18/19 05:24: Sodium 138, Potassium 3.7, Chloride 105, Carbon Dioxide 25, Anion Gap 11.7, BUN 16, Creatinine 1.07, Estimated Creat Clear 84, Estimated GFR 73, Est GFR ( Amer) 89, Glucose 120 H D, Calcium 8.6 06/18/19 06:14: POC Glucose 138 H I & O for Last 24 hours: Intake & Output 06/15/19 06/16/19 06/17/19 06/18/19 11:59 11:59 11:59 11:59 Intake Total 2848 / 2848 Output Total 1470 / 1470 Balance 1378 / 1378 Weight 156 lb 1 oz - Constitutional no acute distress - *Routine Respiratory Exam Present: CTA bilaterally - *Routine Cardiovascular Exam Present: RRR - *Routine Abdominal Exam Present: soft, normoactive bowel sounds. Absent: tenderness - *Routine Extremities Exam Absent: cyanosis, clubbing, edema - *Routine Skin Exam Present: warm. Absent: rash - *Routine Neurological Exam Present: alert, oriented X3, motor deficit (right side). Absent: altered mental status Assessment and Plan (1) Acute CVA (cerebrovascular accident) Current visit: Yes Status: Acute Category: Medical Code(s): I63.9 - Cerebral infarction, unspecified (2) Diabetic ketoacidosis Current visit: Yes Status: Acute Qualifiers: Diabetes mellitus type: type 1 Diabetes mellitus complication detail: without coma Qualified Code(s): E10.10 - Type 1 diabetes mellitus with ketoacidosis without coma Category: Medical Code(s): E11.10 - Type 2 diabetes mellitus with ketoacidosis without coma (3) IDDM (insulin dependent diabetes mellitus) Current visit: No Status: Acute Category: Medical Code(s): E11.9 - Type 2 diabetes mellitus without complications; Z79.4 - custodial (current) use of insulin (4) History of CVA (cerebrovascular accident) Current visit: Yes Status: Acute Category: Medical Code(s): Z86.73 - Personal history of transient ischemic attack (TIA), and cerebral infarction without residual deficits (5) Hypertension Current visit: Yes Status: Chronic Category: Medical Code(s): I10 - Essential (primary) hypertension - Assessment and plan all Dx Assessment and Plan for all problems:: The patient's glucose has normalized and the acetone has resolved. His blood pressure has been high and he does not take any antihypertensives at home. Will discuss the addition of blood pressure medication with Dr. Razo. His insulin drip has been discontinued and he has been started on subcutaneous insulin. <Link Razo - Last Filed: 06/18/19 09:23> Internal Medicine - PN: Subj *Date: 06/18/19 *Time: 09:21 Exam Vital signs and Labs for Last 24 Hours: Temp Pulse Resp BP Pulse Ox 98.8 F 72 16 160/83 H 99 06/18/19 07:48 06/18/19 06:00 06/18/19 06:00 06/18/19 06:00 06/18/19 06:00 Laboratory Results - last 24 hr 06/17/19 12:11: POC Glucose 600 H* 06/17/19 12:30: Phosphorus 3.6, Magnesium 2.1 06/17/19 12:48: VBG pH 7.28 L, VBG pCO2 51.8 H, VBG pO2 86.6 H, VBG HCO3 24.0, VBG Total CO2 25.6, VBG O2 Saturation 95.3 H, VBG Base Excess -2.7 L 06/17/19 12:49: WBC 7.0, RBC 4.33 L, Hgb 12.8 L, Hct 40.4 L, MCV 93.2, MCH 29.5, MCHC 31.7 L, RDW 13.1, Plt Count 186, MPV 8.2, Neut % (Auto) 74.3, Lymph % (Auto) 19.9, Bremer % (Auto) 3.3, Eos % (Auto) 1.3, Baso % (Auto) 1.2, Neut # (Auto) 5.2, Lymph # (Auto) 1.4, Bremer # (Auto) 0.2, Eos # (Auto) 0.1, Baso # (Auto) 0.1 06/17/19 12:49: Sodium 129 L, Potassium 5.4 H, Chloride 93 L, Carbon Dioxide 22 D, Anion Gap 19.4 H, BUN 30 H, Creatinine 1.70 H, Estimated Creat Clear 56, Estimated GFR 43 L, Est GFR ( Amer) 52 L, Glucose 610 H*, Calcium 9.5, Total Bilirubin 0.7, AST 11 L D, ALT 29, Alkaline Phosphatase 126 H, Total Protein 7.0, Albumin 3.9, Globulin 3.1, Albumin/Globulin Ratio 1.3, Acetone Level Small 06/17/19 12:49: Urine Color Yellow, Urine Appearance Clear, Urine pH 5.5, Ur Specific Drury <= 1.005, Urine Protein Trace, Urine Glucose (UA) 3+, Urine Ketones 1+, Urine Blood Trace-i, Urine Nitrate Negative, Urine Bilirubin Negative, Urine Urobilinogen 0.2, Ur Leukocyte Esterase Negative, Urine RBC Occasional, Urine Bacteria Trace 06/17/19 14:23: POC Glucose > 600 H* 06/17/19 14:36: Sodium 132 L, Potassium 5.1, Chloride 96 L, Carbon Dioxide 22, Anion Gap 19.1 H, BUN 30 H, Creatinine 1.69 H, Estimated Creat Clear 56, Estimated GFR 43 L, Est GFR ( Amer) 52 L, Glucose 555 H*, Calcium 9.1 06/17/19 15:32: POC Glucose 491 H* 06/17/19 16:05: POC Glucose 431 H* 06/17/19 17:58: POC Glucose 386 H* 06/17/19 18:33: Sodium 136, Potassium 4.1, Chloride 101, Carbon Dioxide 27 D, Anion Gap 12.1, BUN 26 H, Creatinine 1.41 H, Estimated Creat Clear 62, Estimated GFR 53 L, Est GFR ( Amer) 65 D, Glucose 354 H D, Calcium 9.0 06/17/19 19:53: POC Glucose 311 H* 06/17/19 22:01: POC Glucose 200 H 06/17/19 22:20: Sodium 136, Potassium 4.0, Chloride 102, Carbon Dioxide 29, Anion Gap 9.0, BUN 23 H, Creatinine 1.33 H, Estimated Creat Clear 66, Estimated GFR 57 L, Est GFR ( Amer) 69, Glucose 231 H D, Calcium 9.1 06/17/19 22:57: POC Glucose 205 H 06/17/19 23:52: POC Glucose 126 H 06/18/19 00:54: POC Glucose 109 06/18/19 01:58: POC Glucose 79 06/18/19 02:30: Sodium 138, Potassium 3.5, Chloride 105, Carbon Dioxide 26, Anion Gap 10.5, BUN 19 H, Creatinine 1.12, Estimated Creat Clear 78, Estimated GFR 70, Est GFR ( Amer) 84 D, Glucose 84 D, Calcium 8.6 06/18/19 02:30: Acetone Level None detected 06/18/19 02:59: POC Glucose 90 06/18/19 05:24: Sodium 138, Potassium 3.7, Chloride 105, Carbon Dioxide 25, Anion Gap 11.7, BUN 16, Creatinine 1.07, Estimated Creat Clear 84, Estimated GFR 73, Est GFR ( Amer) 89, Glucose 120 H D, Calcium 8.6 06/18/19 06:14: POC Glucose 138 H I & O for Last 24 hours: Intake & Output 06/15/19 06/16/19 06/17/19 06/18/19 23:59 23:59 23:59 23:59 Intake Total 1447 / 1447 1401 / 1401 Output Total 1195 / 1470 275 / 275 Balance 252 / -23 1126 / 1126 Weight 152 lb 8 oz 156 lb 1 oz Assessment and Plan (1) Acute CVA (cerebrovascular accident) Current visit: Yes Status: Acute Category: Medical Code(s): I63.9 - Cerebral infarction, unspecified (2) Diabetic ketoacidosis Current visit: Yes Status: Acute Qualifiers: Diabetes mellitus type: type 1 Diabetes mellitus complication detail: without coma Qualified Code(s): E10.10 - Type 1 diabetes mellitus with ketoacidosis without coma Category: Medical Code(s): E11.10 - Type 2 diabetes mellitus with ketoacidosis without coma (3) IDDM (insulin dependent diabetes mellitus) Current visit: No Status: Acute Category: Medical Code(s): E11.9 - Type 2 diabetes mellitus without complications; Z79.4 - exterminator termite (current) use of insulin (4) History of CVA (cerebrovascular accident) Current visit: Yes Status: Acute Category: Medical Code(s): Z86.73 - Personal history of transient ischemic attack (TIA), and cerebral infarction without residual deficits (5) Hypertension Current visit: Yes Status: Chronic Category: Medical Code(s): I10 - Essential (primary) hypertension - Assessment and plan all Dx Assessment and Plan for all problems:: Saw patient, agree with above note. His blood sugar is 425 now as he was not started on any basal insulin prior to insulin drip discontinuation. Will resume basal insulin now with sliding scale coverage as needed, possible discharge later today.
--- NOTE | 2019-06-19 08:52 | Discharge Summary ---
General - General Admission date:: 06/17/19 Discharge date: 06/18/19 HPI HPI: Mr. Flores is a 48-year-old male who was just recently seen in the emergency room a few days ago. At that time he was having some slurred speech and difficulty with ambulation as well as right sided weakness. His felt he was having another stroke and took him to the emergency room. A CT scan showed nothing acute and the case was discussed with the stroke team at . They felt he would need an MRI but not a transfer. The patient declined admission and followed up in the office yesterday. It was felt he was having another stroke and an MRI with and without contrast was ordered of the brain for 06/17/2019. Yesterday in the office he was feeling a little bit better. His strength had improved slightly as had his balance. He states he began having double vision today before doing the MRI and the certified medication technician noticed that one pupil was smaller than the other. His called the stroke team at and they advised him to go to the closest emergency department, therefore he presented back to the ER. A repeat CT scan showed the old strokes but nothing acute. His glucose was 600 upon presentation to the ER and he did have acetone in his blood. He di d not take his morning insulin. His MRI showed an acute lacunar infarction within the central aspect of the deon as well as subacute lacunar infarctions of the left basal ganglia and right head of the caudate. There were periventricular ischemic gliotic changes and multiple lesions of the corpus callosum and periventricular white matter suspicious for MS. The case was again discussed with the stroke team at and his MRI was reviewed with the physician at . They did not feel he would require transfer. They felt his normal medications could be continued and he would need a work-up for DKA. Of note he has had 2 strokes earlier this year and was hospitalized at the [facility]. He has some residual right hemiparesis and some residual problems with speech and ambulation. He is currently undergoing physical therapy. Hospital Course Hospital Course: The patient was admitted and started on an insulin drip as well as IV fluids and some of his home medications. By the next morning, he felt much better. He had been weaned off the insulin drip and his glucose was normal until he ate. His glucose then increased into the 400s due to the fact that he had not been started on basal insulin at the time of discontinuation of the insulin drip. Basal insulin was restarted along with sliding scale insulin. The acetone had cleared. His right-sided weakness was improving slightly. He was able to eat and slept well. He did well throughout the day and he wanted to go home. He was stable to be discharged home on his regular medications and will need to follow-up with Dr. Razo in the office. Objective Vital signs: Temp Pulse Resp BP Pulse Ox 98.8 F 90 16 160/83 H 97 06/18/19 07:48 06/18/19 12:00 06/18/19 06:00 06/18/19 06:00 06/18/19 08:00 Narrative: - Constitutional no acute distress - *Routine HEENT Exam Head: Present: normocephalic Eye: Present: EOMI (right pupil is smaller than the left) ENT: Present: mucous membranes dry - *Routine Neck Exam Present: supple. Absent: lymphadenopathy - *Routine Respiratory Exam Present: CTA bilaterally - *Routine Cardiovascular Exam Present: RRR - *Routine Abdominal Exam Present: soft, normoactive bowel sounds. Absent: tenderness - *Routine Extremities Exam Absent: cyanosis, clubbing, edema - *Routine Skin Exam Present: warm. Absent: rash - *Routine Neurological Exam Present: alert, oriented X3, motor deficit (on the right) speech is still slightly slurred Results Labs on day of discharge: Labs from last 24 hours 06/18/19 06/18/19 06/18/19 14:07 11:07 09:04 POC Glucose 272 H 433 H* 425 H* DS: Diagnosis - Discharge Diagnosis (1) Acute CVA (cerebrovascular accident) Status: Acute (2) Diabetic ketoacidosis Status: Acute (3) IDDM (insulin dependent diabetes mellitus) Status: Acute (4) History of CVA (cerebrovascular accident) Status: Acute (5) Hypertension Status: Chronic Discharge Plan - Patient Discharge Instructions ACTIVITY: Continue current activity DIET: continue same diet Additional Instructions: One touch ultra glucose test strips sent to [facility] in [place] Patient Instructions: DI for Stroke-Ischemic, DI for Diabetic Ketoacidosis - Follow up Plan Follow up with: Link Razo MD [Primary Care Provider] - 06/29/19 Disposition: Home, Self-Custodial Medications: Home Medications Medication Instructions Recorded Confirmed Type Atorvastatin Calcium [Atorvastatin 80 mg PO DAILY 04/15/19 06/17/19 History 80mg Tab] Clopidogrel Bisulfate [Plavix 75mg 75 mg PO DAILY 04/15/19 06/17/19 History Tab] Insulin Degludec [Tresiba 15 unit SQ BID 04/15/19 06/17/19 History Flextouch U-100] Insulin Aspart [Novolog] 14 unit SQ TID 06/06/19 06/17/19 History [place]-3 Fatty Acids [Fish Oil] 300 mg PO DAILY 06/15/19 06/17/19 History raNITIdine HCl [Ranitidine HCl] 150 mg PO DAILY 06/15/19 06/17/19 History Aspirin [Aspirin 81mg EC Tab] 81 mg PO DAILY 06/17/19 06/17/19 History Cholecalciferol (Vitamin D3) 5,000 unit PO DAILY 06/17/19 06/17/19 History [Vitamin D3] Duloxetine HCl 30 mg PO DAILY 06/17/19 06/17/19 History Montelukast Sodium [Montelukast 10 mg PO HS 06/17/19 06/17/19 History 10mg Tab] Prescriptions/Medication Reconciliation: Continued Clopidogrel Bisulfate [Plavix 75mg Tab] 75 mg PO DAILY Atorvastatin Calcium [Atorvastatin 80mg Tab] 80 mg PO DAILY Insulin Aspart [Novolog] 14 unit SQ TID raNITIdine HCl [Ranitidine HCl] 150 mg PO DAILY [place]-3 Fatty Acids [Fish Oil] 300 mg PO DAILY Montelukast Sodium [Montelukast 10mg Tab] 10 mg PO HS Insulin Degludec [Tresiba Flextouch U-100] 15 unit SQ BID Duloxetine HCl 30 mg PO DAILY Cholecalciferol (Vitamin D3) [Vitamin D3] 5,000 unit PO DAILY Aspirin [Aspirin 81mg EC Tab] 81 mg PO DAILY
== END 2019-06-18 15:09 | disposition home or self-care (01) | DRG 637 ==
LOC: ER 11:57 → 2ND 14:27
PROVIDERS: ADMIT Emergency Medicine; ATTEND Family Medicine
CPT/HCPCS: J2405

== ENCOUNTER 2019-09-07 10:00 | Outpatient (RCR) | payer BC, OTHER, SELFPAY ==
--- NOTE | 2019-07-06 16:58 | HMH.SLAPHASI ---
Speech & Language Evaluation Speech/Language Aphasia Evaluation Start: 07/06/19 14:08 Freq: once Status: Complete Protocol: Document 07/06/19 16:52 FELICE (Rec: 07/06/19 16:58 FELICE [id number]) Aphasia Assessment/Goals/Plan Assessment Date of Evaluation: 07/06/19 Evaluation Type Initial Certification Assessment/Problems CVA Does Patient Qualify for Service Yes Qualify/Failure Comment Patient has difficulty with word finding and memory Plan Pt will be seen # times/week 1 for # weeks 8 Anticipate reaching STG in # weeks 4 Anticipate reaching LTG in # weeks 8 Pt/Guardian verbally ack understanding Yes of dx/prognosis/goals G -code Required No STG-Attending/Orientation/Memory Delayed Recall 90 STG-Comparative/Linguistic Skills Categorization Ability 90 STG-Divergent Thinking Deductive Reasoning 90 Group Home Goals Increase cognitive skills to communicate Yes w/family & friends Speech & Language HPI History Present Illness Description of Patient Problem CVA Rehab Services Assessed Speech therapy Aphasia Evaluations Communication Auditory Comprehension Yes: Word Level Sentences Following Directions Paragraph Conversation AC Comment WFL Reading Comprehension Yes: Letter Naming Word Naming Sentences Paragraphs RC Comment WFL Verbal Expressive Language Yes: Automatic Speech Completing Sentences Repetition Abilities Word Level Naming Naming Actions/Objects Sentence Level Defining Words ALONDRA Comment WFL WL Comment Was not assessed due to right arm weakness Attending/Orientation/Memory Yes: Orientation Attention/Concentration AOM Comment Delayed recall and short term memory impaired Congnitive/Linguistic Skills Yes: Thought Organization Similarities/Differences CLS Comment Categories and sequencing impaired Convergent Thinking Yes: Central Theme Identification
== END 2019-09-07 10:05 | disposition home or self-care (01) ==
LOC: ST 10:00
PROVIDERS: Visit Provider Family Medicine
DX: I63.9 Cerebral infarction, unspecified (principal)
CPT/HCPCS: 92507; 92523

== ENCOUNTER 2019-09-14 09:00 | Outpatient (RCR) | payer BC, OTHER, SELFPAY | END 2019-09-14 09:05 | disposition home or self-care (01) | LOC: PT 09:00 | PROVIDERS: Visit Provider Physical Medicine & Rehabilitation | DX: I63.9 Cerebral infarction, unspecified (principal); I69.351 Hemiplegia and hemiparesis following cerebral infarction affecting right dominant side | CPT/HCPCS: 97110; 97112; 97163; 97164 ==

== ENCOUNTER 2019-09-14 10:00 | Outpatient (RCR) | payer BC, OTHER, SELFPAY | END 2019-09-14 10:05 | disposition home or self-care (01) | LOC: OT 10:00 | PROVIDERS: Visit Provider Physical Medicine & Rehabilitation | DX: I63.9 Cerebral infarction, unspecified (principal); I69.351 Hemiplegia and hemiparesis following cerebral infarction affecting right dominant side | CPT/HCPCS: 97110; 97164; 97166 ==

== ENCOUNTER → 2020-01-05 13:50 | Outpatient (CLI) | payer BC, SELFPAY ==
[2020-01-05 15:33] LABS: Hemoglobin A1C 9.1 % (0.0-7.0)
[2020-01-05 15:52] LABS: Alanine Aminotransferase 28 U/L (12-78); Albumin/Globulin Ratio 1.5 (1.1-1.8); Alkaline Phosphatase 102 U/L (46-116); Anion Gap 9.8 mEq/L (5-15); Aspartate Amino Transferase 13 U/L (15-37); Bilirubin,Total 0.4 mg/dL (0.2-1.0); Blood Urea Nitrogen 16 mg/dL (7-18); Calcium 9.3 mg/dL (8.5-10.1); Carbon Dioxide 30 mmol/L (21.0-32.0); Chloride 103 mmol/L (98-107); Chol/HDL Ratio 2.6 (1-3.5); Cholesterol 96 mg/dL (140-200); Estimated Glomerular Filt Rate 79 ml/min (>60); GFR (African American) 96 ML/MIN (>60); Globulin 2.6 gm/dl (1.3-3.2); Glucose 152 mg/dL (74-106); HDL Cholesterol 37 mg/dL (27-67); LDL Cholesterol 53 mg/dL (0-130); Potassium 4.8 mmoL/L (3.5-5.1); Sodium 138 mmol/L (136-145); Total Protein,Serum 6.6 gm/dL (6.4-8.2); Triglycerides 29 mg/dL (30-200); VLDL Cholesterol 6 mg/dL (0-40)
== END ==
PROVIDERS: Visit Provider Family Medicine
DX: E10.59 Type 1 diabetes mellitus with other circulatory complications (principal); E78.5 Hyperlipidemia, unspecified
CPT/HCPCS: 36415; 80053; 80061; 83036

== ENCOUNTER 2020-06-11 15:55 | Emergency (ER) | payer BC, SELFPAY ==
[2020-06-11 15:55] VITALS: BP 160/82; PULSE 84; RESP 18; TEMP 37.1; O2SAT 95; BMI 23.6
[2020-06-11 15:56] VITALS: BMI 23.6
--- NOTE | 2020-06-11 15:56 | CT_ITS ---
PROCEDURE: CT ABDOMEN PELVIS W CON CLINICAL INDICATION: fall Blunt trauma with injury and pain, contusion/abrasion or hematoma following injury COMPARISON: CT LUMBAR SPINE WO CON from 06/11/2020 TECHNIQUE: IV Contrast: 75ML OPTIRAY 350 Oral Contrast None Axial images obtained with sagittal and coronal reformats. All CT scans at the facility use one or more dose reduction, viz: automated exposure control, ma/kV adjustment per patient size (including targeted exams where dose is matched to indication, i.e. head), or iterative reconstruction technique. FINDINGS: LOWER THORAX: Atelectatic changes in the lung bases ABDOMEN & PELVIS: The liver, gallbladder, spleen, adrenal glands, and kidneys show no acute finding. There is a 1.3 cm left renal cyst and a nonobstructing 2 mm stone within the upper pole of the left kidney. Pancreas appears atrophic with a focal area of coarse calcification in the junction of the body and head of the pancreas. There is a tiny umbilical hernia which contains fat. No pelvic mass or abnormal fluid collection there is approximately 70 percent burst fracture of L2 with retropulsion of the superior posterior fragments by 8 mm with resultant canal stenosis and bilateral lateral recess narrowing right greater than left. Canal measures approximately 8 mm. IMPRESSION: 1. Burst fracture of L2 with loss of height anteriorly of approximately 70 percent with retropulsion of the posterior superior aspect of L2 by 8 mm. There is heterogeneous density in the paraspinal region at this area consistent with hemorrhage 2. Nonobstructing left renal calculus. 3. No solid organ injury identified 4. Coarse calcification of the head of the pancreas indeterminate. Follow-up suggested to confirm stability Dictated by: Tristen Gomez MD 06/12/2020 09:20 Electronically signed by Tristen Gomez MD in [place] 06/12/2020 09:20
--- NOTE | 2020-06-11 15:56 | CT_ITS ---
PROCEDURE: CT CERVICAL SPINE WO CON CLINICAL INDICATION: fall Neck injury with pain, contusion/abrasion or hematoma, cervical sprain/strain the COMPARISON: No exams were available for comparison TECHNIQUE: Axial images obtained with sagittal and coronal reformats. All CT scans at the facility use one or more dose reduction, viz: automated exposure control, ma/kV adjustment per patient size (including targeted exams where dose is matched to indication, i.e. head), or iterative reconstruction technique. Axial spiral CT scanning performed of the cervical spine beginning at the base of the skull and continuing to the upper T-spine. 3-D multiplanar reconstruction with 3-D manipulation of volumetric data set in image rendering was completed by the radiologist and/or technologist with the supervision of the radiologist on independent workstation. FINDINGS: Normal alignment. No fracture or dislocation. Degenerative disc disease C5-C6 with endplate osteophytes and a small right paracentral disc osteophyte complex with resultant canal stenosis bilateral lateral recess narrowing greater on the right and bilateral foraminal narrowing greater on the right. Mild degenerative disc disease C6-C7. IMPRESSION: 1. No acute fracture. 2. Degenerative disc disease C5-C6 with spinal stenosis worst toward the right with bilateral lateral recess and foraminal narrowing greater on the right with a small disc osteophyte complex on the right Dictated by: Tristen Gomez MD 06/12/2020 10:11 Electronically signed by Tristen Gomez MD in [place] 06/12/2020 10:11
--- NOTE | 2020-06-11 15:56 | CT_ITS ---
PROCEDURE: CT LUMBAR SPINE WO CON CLINICAL HISTORY: fall Back pain following injury, fall with injury and pain, Blunt trauma with injury and pain, contusion/abrasion or hematoma following injury COMPARISON: No exams were available for comparison TECHNIQUE: Axial images obtained with sagittal and coronal reformats. All CT scans at the facility use one or more dose reduction, viz: automated exposure control, ma/kV adjustment per patient size (including targeted exams where dose is matched to indication, i.e. head), or iterative reconstruction technique. FINDINGS: Burst fracture involves the L2 vertebral body with 75 percent compression deformity of L2 with 8 mm retropulsion of the posterior superior fracture fragment. There is some heterogeneous density in the paraspinal region anteriorly at this level consistent with hemorrhage. There is resultant canal stenosis. The canal measures 8 mm. There is lateral recess narrowing greater on the right. The fragment is retropulsed into the canal anteriorly greater on the right compared to the left. The pedicles appear intact. There is kyphosis at the L2 level. There is mild anterior osteophytes at the L4 vertebral body and there is mild degenerative disc disease at L5-S1. Incidental note is made of fusion of the SI joints. IMPRESSION: Burst fracture of L2 with 75 percent compression deformity with retropulsion of the posterior superior fragment with resultant canal stenosis and lateral recess narrowing right greater than left. Suggest MRI for more thorough evaluation. Dictated by: Tristen Gomez MD 06/12/2020 09:35 Electronically signed by Tristen Gomez MD in [place] 06/12/2020 09:35
--- NOTE | 2020-06-11 15:56 | CT_ITS ---
PROCEDURE: CT CHEST WO CON CLINICAL INDICATION: fall Blunt trauma with injury and pain, contusion/abrasion or hematoma following injury COMPARISON: CT ABDOMEN PELVIS W CON from 06/11/2020 TECHNIQUE: Axial images obtained with sagittal and coronal reformats. All CT scans at the facility use one or more dose reduction, viz: automated exposure control, ma/kV adjustment per patient size (including targeted exams where dose is matched to indication, i.e. head), or iterative reconstruction technique. FINDINGS: Mediastinal and vascular evaluation is limited without IV contrast enhancement. No obvious mediastinal hematoma. Coronary artery calcifications are evident. There is mild thickening of the distal esophagus nonspecific. Mild dependent changes are present in the posterior kamari thoraces. No effusions. No evidence of pneumothorax. There is some debris within the tracheal lumen distally on the right and in the right mainstem bronchus posteriorly IMPRESSION: No acute finding on this unenhanced exam Dictated by: Tristen Gomez MD 06/12/2020 10:05 Electronically signed by Tristen Gomez MD in [facility] 06/12/2020 10:05
--- NOTE | 2020-06-11 15:56 | XR_ITS ---
PROCEDURE: XR PELVIS 1-2V CLINICAL INDICATION: fall Posttraumatic COMPARISON: No exams were available for comparison TECHNIQUE: XR Pelvis AP View FINDINGS: No fracture or dislocation is evident. Are mild osteoarthritic changes of the hips No lytic or blastic change. IMPRESSION: No acute findings. Dictated by: Tristen Gomez MD 06/12/2020 07:43 Electronically signed by Tristen Gomez MD in [facility] 06/12/2020 07:43
--- NOTE | 2020-06-11 15:56 | CT_ITS ---
PROCEDURE: CT THORACIC SPINE WO CON CLINICAL HISTORY: fall Blunt trauma with injury and pain, contusion/abrasion or hematoma following injury Fall with injury and pain, back pain COMPARISON: No exams were available for comparison TECHNIQUE: Axial images obtained with sagittal and coronal reformats. All CT scans at the facility use one or more dose reduction, viz: automated exposure control, ma/kV adjustment per patient size (including targeted exams where dose is matched to indication, i.e. head), or iterative reconstruction technique. FINDINGS: Normal alignment. No acute fracture or dislocation. There is mild multilevel degenerative disc disease in the midthoracic and lower thoracic spine.. There is minimal thoracic curvature convex right. Incidental note made of a nonobstructing 2 mm stone in the left kidney superior pole IMPRESSION: No acute finding Dictated by: Tristen Gomez MD 06/12/2020 09:57 Electronically signed by Tristen Gomez MD in [facility] 06/12/2020 09:57
--- NOTE | 2020-06-11 15:56 | CT_ITS ---
PROCEDURE: CT HEAD/BRAIN WO CON CLINICAL INDICATION: fall Head injury with headache/pain, contusion, abrasion or hematoma COMPARISON: HEADWO CT head/brain wo con from 06/17/2019 TECHNIQUE: Axial images obtained. All CT scans at the facility use one or more dose reduction, viz: automated exposure control, ma/kV adjustment per patient size (including targeted exams where dose is matched to indication, i.e. head), or iterative reconstruction technique. FINDINGS: No midline shift, mass effect, intracranial hemorrhage, hydrocephalus, or extra-axial fluid collection is evident. There is generalized atrophy with hypoattenuation of the periventricular white matter consistent with microangiopathic changes.. There is a small old lacunar infarction in the left basal ganglia versus prominent perivascular dilated space. The calvarium has an unremarkable appearance. There is mild opacification of the right mastoid sinus no sinus air-fluid level. There is a small small left parietal scalp hematoma IMPRESSION: No acute intracranial finding Dictated by: Tristen Gomez MD 06/12/2020 10:08 Electronically signed by Tristen Gomez MD in [facility] 06/12/2020 10:08
[2020-06-11 16:00] VITALS: BP 145/92; PULSE 85; RESP 18; O2SAT 96
--- NOTE | 2020-06-11 16:03 | HMH.EDGENADL ---
ED Disposition Clinical Impression: Lumbar compression fracture Qualifiers: Encounter type: initial encounter Lumbar vertebra fracture level: L2 Qualified Code(s): S32.020A - Wedge compression fracture of second lumbar vertebra, initial encounter for closed fracture Fall from ladder Qualifiers: Encounter type: initial encounter Qualified Code(s): W11.XXXA - Fall on and from ladder, initial encounter Scalp hematoma Qualifiers: Encounter type: initial encounter Qualified Code(s): S00.03XA - Contusion of scalp, initial encounter Disposition: Xfer Short-Term Hosp Condition on Discharge: Fair Referrals: Shane Christensen MD [Primary Care Provider] - Forms: Transfer Record - ED - Critical Care Critical Care Time: No Attestation: On 06/11/20, the high probability of a clinically significant, sudden or life threatening deterioration of the following system(s) required my full and direct attention, intervention and personal management. The time I documented below is in addition to time spent performing reported procedures but includes the following listed in this critical care notation. Medical Decision Making - Bryant Inquiry Pt receiving controlled substance: Yes Bryant was queried for this patient: No Reason not queried -: Emergent pt cond-no time Risks and benefits of using a controlled substance: were not discussed with pt by me Vital Signs: 06/11/20 15:55 06/11/20 16:00 06/11/20 17:58 Temperature 98.8 F Temperature Source Oral Pulse Rate [Right] 84 85 74 Respiratory Rate 18 18 16 Blood Pressure [Right Arm] 160/82 H 145/92 H 147/86 H Blood Pressure Mean [Right Arm] 108 109 106 Blood Pressure Source [Right Arm] Manual Cuff/ Auscultation Automatic Cuff Automatic Cuff Blood Pressure Position [Right Arm] Supine Supine Sitting 02 Sat by Pulse Oximetry 95 96 97 Oxygen Delivery Method Room Air Room Air Room Air - Lab Data Lab Results 06/11/20 16:00: WBC 8.7, RBC 4.25 L, Hgb 13.9 L, Hct 41.2 L, MCV 96.9 H, MCH 32.7 H, MCHC 33.8, RDW 13.8, Plt Count 189, MPV 8.2, Neut % (Auto) 72.6, Lymph % (Auto) 21.4, [place] % (Auto) 3.4, Eos % (Auto) 1.9, Baso % (Auto) 0.7, Neut # (Auto) 6.3, Lymph # (Auto) 1.9, [place] # (Auto) 0.3, Eos # (Auto) 0.2, Baso # (Auto) 0.1 06/11/20 16:00: Sodium 132 L, Potassium 5.2 H, Chloride 101, Carbon Dioxide 26, Anion Gap 10.2, BUN 30 H, Creatinine 1.40 H, Estimated Creat Clear 65, Estimated GFR 54 L, Est GFR ( Amer) 65, Glucose 421 H*, Calcium 9.6, Total Bilirubin 0.6, AST 34, ALT 24, Alkaline Phosphatase 103, Total Protein 6.5, Albumin 4.2, Globulin 2.3, Albumin/Globulin Ratio 1.8 Result diagrams: 06/11/20 16:00 06/11/20 16:00 Orders (Tests/Meds): ED MEDICATIONS Discontinued Medications Generic Name Dose Route Start Last Admin Trade Name Freq PRN Reason Stop Dose Admin Hydromorphone HCl 1 mg 06/11/20 17:27 06/11/20 17:52 Dilaudid 2mg/Ml Syringe IV 06/11/20 17:28 1 mg ONCE ONE Administration Ioversol 75 ml 06/11/20 17:10 06/11/20 17:11 Rad-Optiray 350 100ml Vial IV 06/11/20 17:11 75 ml ONCE ONE Administration Protocol Morphine Sulfate 4 mg 06/11/20 16:18 06/11/20 16:21 Morphine 4mg/Ml Syringe IV 06/11/20 16:19 4 mg ONCE ONE Administration Morphine Sulfate 4 mg 06/11/20 17:09 06/11/20 17:48 Morphine 4mg/Ml Syringe IV 06/11/20 17:10 Not Given ONCE ONE Ondansetron HCl 4 mg 06/11/20 16:18 06/11/20 16:21 Zofran 4mg/2ml Vial IV 06/11/20 16:19 4 mg ONCE ONE Administration Ondansetron HCl 4 mg 06/11/20 17:22 06/11/20 17:52 Zofran 4mg/2ml Vial IV 06/11/20 17:23 4 mg ONCE ONE Administration Sodium Chloride 10 ml 06/11/20 17:10 06/11/20 17:11 Rad-Saline Flush 10ml Syringe IV 06/11/20 17:11 10 ml ONCE ONE Administration Tetanus/Reduced Diphtheria/Acell Pertussis 0.5 ml 06/11/20 16:03 06/11/20 17:53 Adacel Tdap 0.5ml Syringe IM 06/11/20 16:04 0.5 ml .ONCE ONE Administration
[2020-06-11 16:31] LABS: Basophils # 0.1 K/mm3 (0-0.2); Basophils % 0.7 % (0.1-2.0); Chloride 101 mmol/L (98-107); Eosinophils # 0.2 K/mm3 (0.0-0.4); Eosinophils % 1.9 % (0.1-12.0); Hematocrit 41.2 % (42.0-52.0); Hemoglobin 13.9 g/dL (14.1-18.0); Lymphocytes # 1.9 K/mm3 (0.7-4.5); Lymphocytes % 21.4 % (10-50); Mean Corpuscular HGB Conc 33.8 g/dL (31.8-35.4); Mean Corpuscular Hemoglobin 32.7 pg (27.0-31.2); Mean Corpuscular Volume 96.9 fl (80-94); Mean Platelet Volume 8.2 fl (7.4-10.4); Monocytes # 0.3 K/mm3 (0.1-1.0); Monocytes % 3.4 % (1.7-9.3); Neutrophils # 6.3 K/mm3 (1.8-7.8); Neutrophils % 72.6 % (37.0-80.0); Platelet Count 189 K/mm3 (142-424); Potassium 5.2 mmoL/L (3.5-5.1); Red Blood Count 4.25 M/mm3 (4.60-6.20); Red Cell Distribution Width 13.8 % (11.5-17.5); Sodium 132 mmol/L (136-145); White Blood Count 8.7 K/mm3 (4.8-10.8)
[2020-06-11 16:34] LABS: Alanine Aminotransferase 24 U/L (12-78); Albumin Level 4.2 g/dl (3.5-5.0); Albumin/Globulin Ratio 1.8 (1.1-1.8); Alkaline Phosphatase 103 U/L (38-126); Anion Gap 10.2 mEq/L (5-15); Aspartate Amino Transferase 34 U/L (17-59); Bilirubin,Total 0.6 mg/dl (0.2-1.3); Blood Urea Nitrogen 30 mg/dl (9-20); Calcium 9.6 mg/dl (8.4-10.2); Carbon Dioxide 26 mmol/L (22.0-30.0); Creatinine Clearance Estimated 65 mL/min (50-200); Estimated Glomerular Filt Rate 54 ml/min (>60); GFR (African American) 65 ML/MIN (>60); Globulin 2.3 g/dL (1.3-3.2); Total Protein,Serum 6.5 g/dl (6.3-8.2)
[2020-06-11 16:35] LABS: Glucose 421 mg/dl (74-100)
--- NOTE | 2020-06-11 17:00 | PC.NURSE ---
PATIENT DENIES ACUTE LOSS OF BOWEL OR BLADDER
--- NOTE | 2020-06-11 17:35 | PC.NURSE ---
v-rAD ON THE PHONE WITH PROVIDER AT THIS TIME
--- NOTE | 2020-06-11 17:57 | PC.NURSE ---
speaking with Dr. Gastelum from [facility]
[2020-06-11 17:58] VITALS: BP 147/86; PULSE 74; RESP 16; O2SAT 97
--- NOTE | 2020-06-11 17:58 | PC.NURSE ---
Dr Ahuja speaking with Dr Gastelum
--- NOTE | 2020-06-11 18:01 | PC.NURSE ---
at bedside. Pily notified Fiordaliza of transfer
[2020-06-11 18:15] VITALS: BP 165/98; PULSE 75; RESP 16; TEMP 36.6; O2SAT 99
== END 2020-06-11 18:37 | disposition short-term general hospital (02) ==
PROVIDERS: Emergency Provider Emergency Medicine; PCP Family Medicine
DX: S32.020A Wedge compression fracture of second lumbar vertebra, initial encounter for closed fracture (principal); S00.03XA Contusion of scalp, initial encounter; W11.XXXA Fall on and from ladder, initial encounter; F41.9 Anxiety disorder, unspecified; I10 Essential (primary) hypertension; Z23 Encounter for immunization; E10.9 Type 1 diabetes mellitus without complications; K21.9 Gastro-esophageal reflux disease without esophagitis; F17.210 Nicotine dependence, cigarettes, uncomplicated; Z79.899 Other long term (current) drug therapy
CPT/HCPCS: 70450; 71250; 72125; 72128; 72131; 72170; 74177; 80053; 85025; 90471; 90715; 96374; 96375; 96376; 99284; J2405; Q9967

== ENCOUNTER → 2020-07-13 13:48 | Outpatient (CLI) | payer BC, SELFPAY ==
[2020-07-13 15:23] LABS: Alanine Aminotransferase 26 U/L (12-78); Albumin Level 4.1 g/dl (3.5-5.0); Albumin/Globulin Ratio 1.6 (1.1-1.8); Alkaline Phosphatase 136 U/L (38-126); Aspartate Amino Transferase 30 U/L (17-59); Bilirubin,Total 0.4 mg/dl (0.2-1.3); Blood Urea Nitrogen 30 mg/dl (9-20); Calcium 9.8 mg/dl (8.4-10.2); Carbon Dioxide 26 mmol/L (22.0-30.0); Chloride 97 mmol/L (98-107); Chol/HDL Ratio 2.7 (1-3.5); Cholesterol 124 mg/dl (140-200); Estimated Glomerular Filt Rate 58 ml/min (>60); GFR (African American) 71 ML/MIN (>60); Globulin 2.6 g/dL (1.3-3.2); HDL Cholesterol 46 mg/dl (40-60); Sodium 136 mmol/L (136-145); Total Protein,Serum 6.7 g/dl (6.3-8.2); Triglycerides 122 mg/dl (30-150); VLDL Cholesterol 24 mg/dL (0-40)
[2020-07-13 15:34] LABS: Direct LDL Cholesterol 70.41 mg/dL (100-129)
[2020-07-13 15:56] LABS: Thyroid Stimulating Hormone 0.65 uIU/mL (0.465-4.68)
[2020-07-13 15:59] LABS: Anion Gap 17.6 mEq/L (5-15); Potassium 4.6 mmoL/L (3.5-5.1)
[2020-07-13 16:09] LABS: Glucose 414 mg/dl (74-100)
== END ==
PROVIDERS: Visit Provider Nurse Practitioner Family
DX: E10.8 Type 1 diabetes mellitus with unspecified complications (principal); Z79.4 Long term (current) use of insulin
CPT/HCPCS: 36415; 80053; 80061; 82043; 84443

== ENCOUNTER 2020-07-26 15:55 | Emergency (ER) | payer BC, SELFPAY ==
[2020-07-26 15:55] VITALS: BP 141/100; PULSE 116; RESP 20; TEMP 36.4; O2SAT 98; BMI 18.6
[2020-07-26 16:19] LABS: POC Glucose,Bedside 295 (70-110)
[2020-07-26 16:39] LABS: Chloride 100 mmol/L (98-107); Hematocrit 40.8 % (42.0-52.0); Hemoglobin 13.6 g/dL (14.1-18.0); Mean Corpuscular HGB Conc 33.3 g/dL (31.8-35.4); Mean Corpuscular Hemoglobin 31.9 pg (27.0-31.2); Mean Corpuscular Volume 95.6 fl (80-94); Mean Platelet Volume 8.2 fl (7.4-10.4); Platelet Count 317 K/mm3 (142-424); Potassium 4.2 mmoL/L (3.5-5.1); Red Blood Count 4.27 M/mm3 (4.60-6.20); Red Cell Distribution Width 13.5 % (11.5-17.5); White Blood Count 8.6 K/mm3 (4.8-10.8)
[2020-07-26 16:40] LABS: Basophils # 0.1 K/mm3 (0-0.2); Basophils % 0.6 % (0.1-2.0); Eosinophils # 0.1 K/mm3 (0.0-0.4); Eosinophils % 1.4 % (0.1-12.0); Lymphocytes # 1.7 K/mm3 (0.7-4.5); Lymphocytes % 19.5 % (10-50); Monocytes # 0.3 K/mm3 (0.1-1.0); Monocytes % 3.9 % (1.7-9.3); Neutrophils # 6.4 K/mm3 (1.8-7.8); Neutrophils % 74.5 % (37.0-80.0)
[2020-07-26 16:41] LABS: Alanine Aminotransferase 36 U/L (12-78); Aspartate Amino Transferase 31 U/L (17-59); Blood Urea Nitrogen 24 mg/dl (9-20); Creatinine Clearance Estimated 57 mL/min (50-200); Estimated Glomerular Filt Rate 58 ml/min (>60); GFR (African American) 71 ML/MIN (>60)
--- NOTE | 2020-07-26 16:41 | ECG_ITS ---
APPROVED REPORT Exam: Resting ECG HR:94 bpm ECG Measurements Heart Rate 94 AXES TN 142 P 78 QRSd 82 QRS 75 QT 342 T 72 QTc 427 <Conclusion> Normal sinus rhythm Early repolarization Normal ECG Electronically signed by : Sergio Doan, 07/29/2020 07:08:38
[2020-07-26 16:42] LABS: Albumin Level 4.4 g/dl (3.5-5.0); Albumin/Globulin Ratio 1.4 (1.1-1.8); Alkaline Phosphatase 134 U/L (38-126); Anion Gap 15.2 mEq/L (5-15); Bilirubin,Total 0.4 mg/dl (0.2-1.3); Calcium 10.4 mg/dl (8.4-10.2); Carbon Dioxide 27 mmol/L (22.0-30.0); Globulin 3.1 g/dL (1.3-3.2); Glucose 311 mg/dl (74-100); Lipase 20 U/L (23-300); Sodium 138 mmol/L (136-145); Total Protein,Serum 7.5 g/dl (6.3-8.2)
[2020-07-26 16:55] VITALS: BP 119/81; PULSE 88; RESP 20; O2SAT 97
[2020-07-26 16:57] LABS: Acetone, Serum (Rapid) None Detected (None Detect)
--- NOTE | 2020-07-26 17:12 | HMH.EDGENADL ---
ED Disposition Clinical Impression: Vomiting Qualifiers: Vomiting type: unspecified Vomiting Intractability: non-intractable Nausea presence: with nausea Qualified Code(s): R11.2 - Nausea with vomiting, unspecified Disposition: Home, Self-Care Condition on Discharge: Good Instructions: DI for Diarrhea and Traveler's Diarrhea -- Adult, DI for Diarrhea and Traveler's Diarrhea -- Child, DI for Nausea -- Adult, DI for Nausea -- Child Prescriptions: Ondansetron [Zofran 4mg ODT] 4 mg PO Q6H PRN #20 tab.rapdis PRN Reason: Nausea Prescription Printed Referrals: Aide Chavez MD [Primary Care Provider] - - Critical Care Critical Care Time: No Attestation: On 07/26/20, the high probability of a clinically significant, sudden or life threatening deterioration of the following system(s) required my full and direct attention, intervention and personal management. The time I documented below is in addition to time spent performing reported procedures but includes the following listed in this critical care notation. Medical Decision Making - Bryant Inquiry Pt receiving controlled substance: No Vital Signs: 07/26/20 15:55 07/26/20 16:55 07/26/20 17:30 Temperature 97.5 F L Temperature Source Oral Pulse Rate [Left Radial] 116 H 88 80 Respiratory Rate 20 20 18 Blood Pressure [Right Arm] 141/100 H 119/81 129/80 Blood Pressure Mean [Right Arm] 113 93 96 Blood Pressure Source [Right Arm] Automatic Cuff Automatic Cuff Automatic Cuff Blood Pressure Position [Right Arm] Sitting Supine Sitting 02 Sat by Pulse Oximetry 98 97 99 Oxygen Delivery Method Room Air Room Air Room Air - Lab Data Lab Results 07/26/20 16:12: POC Glucose 295 H 07/26/20 16:20: WBC 8.6, RBC 4.27 L, Hgb 13.6 L, Hct 40.8 L, MCV 95.6 H, MCH 31.9 H, MCHC 33.3, RDW 13.5, Plt Count 317, MPV 8.2, Neut % (Auto) 74.5, Lymph % (Auto) 19.5, [place] % (Auto) 3.9, Eos % (Auto) 1.4, Baso % (Auto) 0.6, Neut # (Auto) 6.4, Lymph # (Auto) 1.7, [place] # (Auto) 0.3, Eos # (Auto) 0.1, Baso # (Auto) 0.1 07/26/20 16:20: Sodium 138, Potassium 4.2, Chloride 100, Carbon Dioxide 27, Anion Gap 15.2 H, BUN 24 H, Creatinine 1.30 H, Estimated Creat Clear 57, Estimated GFR 58 L, Est GFR ( Amer) 71, Glucose 311 H, Calcium 10.4 H, Total Bilirubin 0.4, AST 31, ALT 36, Alkaline Phosphatase 134 H, Total Protein 7.5, Albumin 4.4, Globulin 3.1, Albumin/Globulin Ratio 1.4, Lipase 20 L 07/26/20 16:20: Acetone Level None detected 07/26/20 18:30: Urine Color Yellow, Urine Appearance Clear, Urine pH 6.0, Ur Specific [place] 1.025, Urine Protein 1+, Urine Glucose (UA) 3+, Urine Ketones Trace, Urine Blood 1+, Urine Nitrate Positive, Urine Bilirubin Negative, Urine Urobilinogen 0.2, Ur Leukocyte Esterase 2+ A Result diagrams: 07/26/20 16:20 07/26/20 16:20 Orders (Tests/Meds): ED MEDICATIONS Discontinued Medications Generic Name Dose Route Start Last Admin Trade Name Freq PRN Reason Stop Dose Admin Lactated Ringer's 1,000 mls @ 999 mls/hr 07/26/20 16:15 07/26/20 16:42 Lactated Ringer's 1000 Ml Bag IV 07/26/20 17:15 999 mls/hr .Q1H1M RAMESH Administration Ondansetron HCl 4 mg 07/26/20 16:13 07/26/20 16:42 Zofran 4mg/2ml Vial IV 07/26/20 16:14 4 mg ONCE ONE Administration ORDERS Category Date Time Status Covid-19 Nasal PCR Sendout Humberto Stat Lab 07/26/20 18:53 Ordered Urinalysis and Microscopic Stat Lab 07/26/20 18:30 Results VBG PH Stat Lab 07/26/20 16:12 Ordered Urine Culture Stat Micro 07/26/20 18:30 Received Venous Blood Gas Routine RT 07/26/20 17:37 Received ECG Request by /Ondina Stat Y 07/26/20 16:12 Ordered Medical Decision Narrative: In summary patient presents for vomiting. Patient has no abdominal pain on examination, vitals are significant for sinus tachycardia, patient had EKG performed, no evidence of pathological T waves, QT QTc within normal range. Patient blood pressure stable, mentating well. Patient states he feels the sa
[2020-07-26 17:30] VITALS: BP 129/80; PULSE 80; RESP 18; O2SAT 99
--- NOTE | 2020-07-26 17:49 | PC.NURSE ---
LAB COLLECTED COVID SWAB, PT BOARDING IN ER PENDING COVID RESULTS BEFORE ADMISSION.
[2020-07-26 18:40] LABS: Microscopic, Urine URINE MICROSCOPIC (MICROSCOPIC)
[2020-07-26 18:45] LABS: Appearance,Urine CLEAR (Clear); Bilirubin,Urine Negative (Negative); Blood, Urine 1+ (Negative); Color,Urine YELLOW (Yellow); Glucose,Urine (UA) 3+ (Negative); Ketones,Urine TRACE (Negative); Leukocyte Esterase,Urine 2+ (Negative); Nitrate,Urine POSITIVE (Negative); Protein,Urine 1+ (Negative); Specific Gravity, Urine 1.025 (1.005-1.030); Urobilinogen,Urine 0.2 EU/dl (0.2)
[2020-07-26 18:59] LABS: Bacteria,Urine Trace /lpf; Squamous Epithelial Cell,Urine Occasional #/hpf (0-5); WBC,Urine TNTC #/hpf (0-3)
[2020-07-26 19:04] VITALS: BP 123/85; PULSE 80; RESP 18; TEMP 36.8; O2SAT 100
[2020-07-27 06:48] LABS: VBG HCO3 20.9 mmol/L (23-30); VBG PCO2 31.4 mmol/L (35-51); VBG PH 7.44 mmol/L (7.31-7.41); VBG PO2 26.5 mmol/L (28-40)
[2020-07-27 06:49] LABS: VBG Base Excess -3.2 mmol/L (-2.4-2.3); VBG Oxygen Saturation 70.2 % (50-70); VBG Total CO2 21.9 mmol/L (23-27)
[2020-07-28 13:12] LABS: Covid-19 Nasal PCR Sendout Lex Not Detected
== END 2020-07-26 19:05 | disposition home or self-care (01) ==
PROVIDERS: Emergency Provider Emergency Medicine; PCP Family Medicine
DX: R11.2 Nausea with vomiting, unspecified (principal); Z20.828 Contact with and (suspected) exposure to other viral communicable diseases; E10.65 Type 1 diabetes mellitus with hyperglycemia; Z79.4 Long term (current) use of insulin; F41.9 Anxiety disorder, unspecified; I10 Essential (primary) hypertension; K21.9 Gastro-esophageal reflux disease without esophagitis; Z86.73 Personal history of transient ischemic attack (TIA), and cerebral infarction without residual deficits; F17.210 Nicotine dependence, cigarettes, uncomplicated; Z79.899 Other long term (current) drug therapy
CPT/HCPCS: 80053; 81001; 82009; 82803; 82962; 83690; 85025; 87086; 87088; 87186; 93005; 99284; J2405; U0004

== ENCOUNTER → 2020-09-21 10:19 | Outpatient (CLI) | payer BC, SELFPAY ==
[2020-09-21 12:15] LABS: Prostate Specific Ag Screen 1.5 ng/ml (0.0-4.0)
== END ==
PROVIDERS: Visit Provider Urology
DX: Z12.5 Encounter for screening for malignant neoplasm of prostate (principal)
CPT/HCPCS: 36415; G0103

== ENCOUNTER → 2020-12-06 11:40 | Outpatient (CLI) | payer BC, SELFPAY ==
[2020-12-06 13:08] LABS: Coronavirus 19 IgG Antibody Negative (Negative); Coronavirus 19 IgM Antibody Negative (Negative)
== END ==
PROVIDERS: Visit Provider Urology
DX: N13.8 Other obstructive and reflux uropathy (principal); N40.1 Benign prostatic hyperplasia with lower urinary tract symptoms
CPT/HCPCS: 36415; 86328

== ENCOUNTER 2020-12-08 08:24 | Day surgery (SDC) | payer BC, SELFPAY ==
[2020-12-06 09:30] VITALS: BMI 22.8
[2020-12-08 08:46] VITALS: BP 164/80; PULSE 69; RESP 20; TEMP 36.8; O2SAT 100
[2020-12-08 09:36] VITALS: BP 147/72; PULSE 70; RESP 18; TEMP 36.6; O2SAT 99
--- NOTE | 2020-12-08 13:24 | HMH.OPNOTE ---
Date of procedure: 12/08/20 Pre-op Diagnosis:: Urinary slowing Post-op Diagnosis:: Urinary slowing/moderate BPH Procedure performed:: Flexible cystourethroscopy Surgeon:: Patrick Whitfield MD Anesthesia: local Estimated blood loss (mL): 0 Clinical Note:: Patient is a 50-year-old white male with complaints of urinary slowing, hesitancy, frequency and nocturia. There was reports of a difficult Zuleta catheter placement as well when in the emergency room. Patient has a long history of diabetes type 1 but denies any peripheral neuropathy or abnormal bowel habits. Operative findings:: Patient with some mild to moderate prostatic hyperplasia, the bladder appears to be a higher capacity there is no evidence of any bladder diverticula, mucosal changes. Operative note:: Patient taken to the cystoscopy suite after informed consent was obtained. On the stretcher he was prepped and draped in the standard surgical fashion and 2% lidocaine placed into the urethra and clamped for 5 minutes. For 5 minutes the flexible cystoscope introduced into the urethral meatus. Passed to the prostatic urethra without evidence of strictures. Static urethra showed some mild to moderate hyperplasia but there was no coaptation of the lobes. The bladder was entered and examined in a systematic fashion. Patient had abnormal sensation of filling. The bladder appeared to be of the larger than normal capacity. There is no evidence of mucosal abnormalities, stones, trabeculation or cellule or diverticular formation. The ureteral orifices in their normal anatomic position. A small median lobe was present. Clear efflux of urine was noted from both orifices. Scope then removed. Patient tolerated procedure well. Then asked him to stand up and try to void. I had placed 500 cc of water into his bladder. After some difficulty starting he was able to void 450 cc with an adequate stream. We discussed the findings today and he was reassured that there is no evidence of urethral stricture, significant prostatic enlargement or bladder outlet obstructive changes in his bladder. I favor that he may have more of a diabetic bladder due to his long history of diabetes type 1 but he denies any other neuropathies. Suggested he stay on the tamsulosin. We also discussed his history of erectile dysfunction and again discussed options including vacuum erection device versus intracavernosal injections. He and his will discuss the options. Condition: stable Disposition: same day Specimens:: None Complications:: None
--- NOTE | 2020-12-08 13:35 | HMH.OPNOTE ---
Date of procedure: 12/08/20 Pre-op Diagnosis:: Recurring urinary tract infections, dysuria, suprapubic discomfort Post-op Diagnosis:: Urethral trigonitis Procedure performed:: Flexible cystourethroscopy Surgeon:: Patrick Whitfield MD Anesthesia: local Estimated blood loss (mL): 0 Clinical Note:: Patient is a 50-year-old white female with some persistent urinary symptoms of dysuria with and without urination and suprapubic discomfort. She has had at least 2 documented urinary tract infections since May. Recent CT scan shows no evidence of kidney stones, obstruction, renal masses or other pathology. Operative findings:: Bladder is within normal limits the bladder neck and urethra show evidence of inflammatory changes. Operative note:: Patient taken to the cystoscopy suite after informed consent was obtained. On the stretcher she was prepped and draped in the standard surgical fashion and 2% lidocaine placed into the urethra. After 5 minutes the flexible cystoscope introduced into the urethral meatus and into the bladder without difficulty. The bladder was examined in a systematic fashion. There is no evidence of mucosal changes, diverticula, trabeculation or cellule formation. There was some pseudomembranous trigonitis present at the intertrigonal region. The ureteral orifices were in their normal anatomic position with clear efflux of urine. The bladder neck showed erythematous frondular changes as well as the proximal urethra with erythematous changes. The scope removed the patient tolerated the procedure well. We discussed the changes today in her cystoscopic exam and symptoms are consistent with urethral trigonitis. We discussed cessation of irritating foods such as caffeine, vitamin C and spicy foods. She claims she does not drink much of these. She was placed on a phylactic dose of Macrobid at her last visit. I am going to add Uribel 3 times daily as needed as well as estrogen cream. We also discussed hot tub soaks for the inflammatory syndrome. I will see her back in 1 month in follow-up. Condition: stable Disposition: same day Specimens:: None Complications:: None
== END 2020-12-08 09:40 | disposition home or self-care (01) ==
LOC: OUTP 08:27
PROVIDERS: PCP Family Medicine; Visit Provider Urology
PROC: (CPT 52000; principal; 2020-12-08 09:00)
DX: N40.1 Benign prostatic hyperplasia with lower urinary tract symptoms (principal); R39.12 Poor urinary stream
CPT/HCPCS: 52000

== ENCOUNTER → 2021-03-02 08:01 | Outpatient (CLI) | payer BC, SELFPAY ==
[2021-03-02 09:26] LABS: Alanine Aminotransferase 25 U/L (12-78); Albumin Level 4.6 g/dl (3.5-5.0); Albumin/Globulin Ratio 1.9 (1.1-1.8); Alkaline Phosphatase 116 U/L (38-126); Anion Gap 15.2 mEq/L (5-15); Aspartate Amino Transferase 25 U/L (17-59); Bilirubin,Total 0.4 mg/dl (0.2-1.3); Blood Urea Nitrogen 31 mg/dl (9-20); Calcium 9.9 mg/dl (8.4-10.2); Carbon Dioxide 26 mmol/L (22.0-30.0); Chloride 100 mmol/L (98-107); Cholesterol 124 mg/dl (140-200); Estimated Glomerular Filt Rate 64 ml/min (>60); GFR (African American) 77 ML/MIN (>60); Globulin 2.4 g/dL (1.3-3.2); HDL Cholesterol 42 mg/dl (40-60); Potassium 5.2 mmoL/L (3.5-5.1); Sodium 136 mmol/L (136-145); Triglycerides 75 mg/dl (30-150); VLDL Cholesterol 15 mg/dL (0-40)
[2021-03-02 09:36] LABS: Glucose 441 mg/dl (74-100)
[2021-03-02 09:56] LABS: Prostate Specific Ag Screen 1.1 ng/ml (0.0-4.0)
== END ==
PROVIDERS: Visit Provider Family Medicine
DX: I10 Essential (primary) hypertension (principal); E10.59 Type 1 diabetes mellitus with other circulatory complications; E78.5 Hyperlipidemia, unspecified; Z12.5 Encounter for screening for malignant neoplasm of prostate
CPT/HCPCS: 36415; 80053; 80061; G0103

== ENCOUNTER → 2021-11-15 08:16 | Outpatient (CLI) | payer BC, SELFPAY ==
[2021-11-15 09:27] LABS: Blood Urea Nitrogen 19 mg/dl (9-20); Estimated Glomerular Filt Rate 70 ml/min (>60); GFR (African American) 85 ML/MIN (>60)
== END ==
PROVIDERS: Visit Provider Family Medicine
DX: Z01.812 Encounter for preprocedural laboratory examination (principal)
CPT/HCPCS: 36415; 82565; 84520

== ENCOUNTER → 2021-11-21 10:04 | Outpatient (CLI) | payer BC, MEDICARE, SELFPAY ==
--- NOTE | 2021-11-21 10:10 | CT_ITS ---
PROCEDURE: CT ABDOMEN W CON CLINICAL HISTORY: ABN CT OF ABD COMPARISON: CT CT ABDOMEN PELVIS W CON from 06/11/2020 TECHNIQUE: Axial images obtained with sagittal and coronal reformats. All CT scans at the facility use one or more dose reduction, viz: automated exposure control, ma/kV adjustment per patient size (including targeted exams where dose is matched to indication, i.e. head), or iterative reconstruction technique. FINDINGS: There are atelectatic changes in both lung bases with faint ground-glass attenuation in the right lower lobe posteriorly. Atelectasis is greater on the right compared to the left. This could also be related to scarring. No focal liver lesion. Spleen and adrenal glands are unremarkable. There is a small left renal cortical cyst anteriorly at 1.3 cm unchanged. Mild prominence of the renal pelves on both sides. No renal calculus apparent. No hydronephrosis. There is diffuse pancreatic atrophy with scattered coarse areas of calcification in the body and head of the pancreas with the largest area of calcification in the head of the pancreas measuring 1.4 by 0.5 cm. This area is not significantly changed. There is a new coarse calcification in the body of the pancreas centrally. There is mild prominence of the pancreatic duct the at 4 mm. Common bile duct is prominent at 8 mm. Bowel gas pattern is nonspecific. There is a moderate amount of retained colonic feces. There is a mildly thickened small bowel loop in the right lower quadrant which is incompletely imaged. Image 50 series 3. Chronic burst fracture of L2 with retropulsion of the posterior superior aspect by 7 mm unchanged there is canal stenosis at this level.. IMPRESSION: 1. Scattered coarse calcification within the pancreas. These could represent stones within the pancreatic duct versus parenchymal calcifications from chronic pancreatitis. MRCP may provide further evaluation 2. Bilateral lower lobe atelectatic changes/scarring with patchy infiltrate in the right lower lobe. 3. Small bowel wall thickening incompletely image in the right lower quadrant which may be seen with enteritis. 4. No change chronic burst fracture of L2 Dictated by: Tristen Gomez MD 11/22/2021 09:23 Tristen Gomez MD in [place] 11/22/2021 09:23
== END ==
PROVIDERS: PCP Family Medicine; Visit Provider Family Medicine
DX: R93.5 Abnormal findings on diagnostic imaging of other abdominal regions, including retroperitoneum (principal)
CPT/HCPCS: 74160; Q9967

== ENCOUNTER → 2022-04-09 10:58 | Outpatient (POV) | payer BC, MEDICARE, SELFPAY | PROVIDERS: Visit Provider Dermatology | DX: Z00.00 Encounter for general adult medical examination without abnormal findings (principal) ==

== ENCOUNTER 2023-05-14 08:39 | Day surgery (SDC) | payer BC, MEDICARE, SELFPAY ==
[2023-05-05 14:28] VITALS: BMI 21.9
[2023-05-14 09:21] VITALS: BP 159/87; PULSE 76; RESP 18; TEMP 36.9; O2SAT 98
[2023-05-14 09:37] LABS: POC Glucose,Bedside 142 (70-110)
--- NOTE | 2023-05-14 10:02 | P.PN_ITS ---
[facility] Disclaimer: The information contained in this section may have been updated after the patient was seen, as this information can be updated by other users. Medical History Diabetes mellitus, type 2 History of deviated nasal septum History of transient ischemic attack (TIA) Hyperlipidemia Surgical History No significant past surgical history Family History Other Family history of cancer Family history of diabetes mellitus type II Social History Smoking Status: Former smoker smoking status stop date: 12/01/22 alcohol intake: never substance use type: denies use current occupational status: disabled Travel in the last 8 weeks: Inside the [place] household members: spouse housing: house marital status: education level: high school caffeine: Yes special keiry needs: No do you feel safe at home: Yes victim of physical abuse: No victim of emotional abuse: No victim of sexual abuse: No would you like helpful sources: No [facility] Anesthesia Checklist Patient Identification Patient Identification: Arm Band and Verbal (Name & ) Structural Data Admitted From: Home Planned Operative Procedure/s: Colonoscopy Consent for Planned Operative Procedure(s) Verified: Yes NPO Status Verified Time NPO: 00:00 Airway Assessment C-Spine Mobility Assessed: Yes TMJ Mobility Assessed: Yes Dentition: Edentulous Neurological Assessment Level of Consciousness: Awake Hx Seizures: No Numbness or tingling in extremities: No Anesthesia Plan Anesthesia Risk discussed: Yes Anesthesia Plan: Verified ASA Class: III Anesthesia Type: MAC
--- NOTE | 2023-05-14 10:43 | HMH.SCOPE ---
Procedure: Date: 05/14/23 Patient Date of :: 1970 Procedure Performed:: Colonoscopy Indications:: The patient is a 52 year old who presents for colonoscopy for having a positive cologuard test. The patient has never had a screening colonoscopy. Performing Provider:: Fransico Sheth MD Referring Provider:: Elier Chavez MD Sedation:: See RN records Procedure:: After placing the patient in the left lateral decubitus position, the colonoscopy was gently inserted into the rectum and under direct visualization advanced to the proximal descending colon. The quality of the faye preparation was inadequate. Findings:: Inadequate bowel preparation characterized by thick brown liquid and partially digested food materials. The procedure was aborted. Recommendations:: Recommend repeat colonoscopy with 2 days liquid diet and split dose bowel preparation. Complications:: None Estimated blood obtained (mL): 0 Colonoscopy Component Colonoscopy Component Was a colonoscopy performed during today's procedure?: Yes Recommended follow up colonoscopy of at least 10 years?: Yes
[2023-05-14 10:47] VITALS: BP 95/51; PULSE 72; RESP 16; O2SAT 95
[2023-05-14 10:57] VITALS: BP 118/77; PULSE 78; RESP 16; O2SAT 97
[2023-05-14 11:07] VITALS: BP 132/73; PULSE 73; RESP 17; O2SAT 97
[2023-05-14 11:17] VITALS: BP 127/73; PULSE 74; RESP 16; TEMP 36.6; O2SAT 98
== END 2023-05-14 11:28 | disposition home or self-care (01) ==
PROVIDERS: PCP Family Medicine; Visit Provider Internal Medicine
PROC: 0DJD8ZZ Inspection of Lower Intestinal Tract, Via Natural or Artificial Opening Endoscopic (ICD-10-PCS; CPT 45378; principal; 2023-05-14 10:00)
DX: Z91.199 Patient's noncompliance with other medical treatment and regimen due to unspecified reason (principal); E11.9 Type 2 diabetes mellitus without complications
CPT/HCPCS: 45330; 82962

== ENCOUNTER 2023-07-09 10:00 | Day surgery (SDC) | payer BC, MEDICARE, SELFPAY ==
[2023-06-09 14:10] VITALS: BMI 22.8
[2023-07-09 10:50] VITALS: BP 155/70; PULSE 70; RESP 18; TEMP 36.3; O2SAT 100
[2023-07-09 11:00] LABS: POC Glucose,Bedside 100 (70-110)
--- NOTE | 2023-07-09 11:17 | P.PNANES_ITS ---
[facility] Disclaimer: The information contained in this section may have been updated after the patient was seen, as this information can be updated by other users. Medical History (Updated 07/09/23 @ 10:48 by Jazmine Gonzalez RN) Deviated septum Diabetes mellitus type 1 Diabetes mellitus, type 2 History of deviated nasal septum History of transient ischemic attack (TIA) Hyperlipidemia Surgical History (Updated 07/09/23 @ 10:48 by Jazmine Gonzalez RN) History of surgery on arm No significant past surgical history Family History Other Family history of cancer Family history of diabetes mellitus type II Social History (Updated 07/09/23 @ 10:49 by Jazmine Gonzalez RN) Smoking Status: Former smoker smoking status stop date: 12/01/22 alcohol intake: never substance use type: denies use current occupational status: disabled Travel in the last 8 weeks: Inside the [place] household members: spouse housing: house marital status: education level: high school caffeine: No special keiry needs: No do you feel safe at home: Yes victim of physical abuse: No victim of emotional abuse: No victim of sexual abuse: No would you like helpful sources: No [facility] Anesthesia Checklist Patient Identification Patient Identification: Arm Band Structural Data Admitted From: Home Planned Operative Procedure/s: colonoscopy Consent for Planned Operative Procedure(s) Verified: Yes Verified Documents: Surgical Consent and History and Physical NPO Status Verified Time NPO: 00:00 Additional verifications Anesthesia Reactions: No Airway Assessment Mallampati Score:: Class II C-Spine Mobility Assessed: Yes TMJ Mobility Assessed: Yes Dentition: Edentulous Neurological Assessment Level of Consciousness: Awake and Alert Anesthesia Plan Anesthesia Risk discussed: Yes Anesthesia Plan: Verified ASA Class: III Anesthesia Type: MAC
[2023-07-09 11:52] VITALS: O2SAT 98
--- NOTE | 2023-07-09 12:48 | HMH.SCOPE ---
Procedure: Date: 07/09/23 Patient Date of :: 1970 Procedure Performed:: Colonoscopy Indications:: The patient has a positive cologuard test. The patient presented for colonoscopy in May and bowel preparation was poor. Performing Provider:: Fransico Sheth MD Referring Provider:: Elier Chavez MD Sedation:: See RN records Procedure:: After placing the patient in the left lateral decubitus position, the colonoscopy was gently inserted into the rectum and under direct visualization advanced to the cecum which was identified by transillumination in the right lower quadrant, identification of the ileocecal valve, appendiceal orifice, and cecal strap. Color, texture, mucosa, and anatomy of the colon were carefully examined with the scope. Findings:: Anal canal: normal Rectum: hemorrhoids Sigmoid colon: Sessile polyp 3 mm in size. Removed with cold snare polypectomy. Pedunculated polyp 10 mm in size. Removed with hot snare polypectomy. Sigmoid colon was angulated. Bowel preparation in sigmoid colon was fair. Descending colon: Fair bowel preparation Splenic flexure: normal Transverse colon: Sessile polyp 5-6 mm in size. Removed with cold snare polypectomy Hepatic flexure: Polyp 10-11 mm in size. Removed with hot snare polypectomy Ascending colon: Two polyps 5 and 6 mm in size. Removed with cold snare polypectomy. Within distal ascending colon there was a polyp approximately 12-13 mm in size. Upon resecting the polyp with hot snare polypectomy, it was evident that there was further extension of a multilobular polyp lesion behind the fold measuring less than 20 mm in size. The polyp did not appear ammenable to endoscopic resection. Endoscopic marker was placed adjacent to this lesion Cecum: Four sessile polyps ranging 4-6 mm in size. Removed with cold snare polypectomy Terminal ileum: not visualized Impression: Multiple colon polyps, predominately within the proximal colon Multilobular polypoid lesion within the ascending colon Angulated sigmoid colon Recommendations:: Await pathology results Refer to surgery for the larger polyp lesion of the ascending colon Refer to hematology-oncology to discuss genetic testing Repeat colonoscopy 1 year after surgery Complications:: none Estimated blood obtained (mL): 0 Colonoscopy Component Colonoscopy Component Was a colonoscopy performed during today's procedure?: Yes Recommended follow up colonoscopy of at least 10 years?: Yes
[2023-07-09 12:49] VITALS: BP 162/79; PULSE 83; RESP 18; TEMP 36.3; O2SAT 100
[2023-07-09 12:59] VITALS: BP 171/81; PULSE 74; RESP 16; O2SAT 100
[2023-07-09 13:09] VITALS: BP 174/90; PULSE 70; RESP 17; O2SAT 100
[2023-07-09 13:19] VITALS: BP 168/79; PULSE 77; RESP 16; O2SAT 100
== END 2023-07-09 13:20 | disposition home or self-care (01) ==
PROVIDERS: PCP Family Medicine; Visit Provider Internal Medicine
PROC: 0DJD8ZZ Inspection of Lower Intestinal Tract, Via Natural or Artificial Opening Endoscopic (ICD-10-PCS; CPT 45378; principal; 2023-07-09 11:00)
DX: R19.5 Other fecal abnormalities (principal); D12.3 Benign neoplasm of transverse colon; D12.0 Benign neoplasm of cecum; D12.2 Benign neoplasm of ascending colon; D12.5 Benign neoplasm of sigmoid colon; K64.8 Other hemorrhoids; E11.9 Type 2 diabetes mellitus without complications
CPT/HCPCS: 45385; 82962; J2704

== ENCOUNTER 2023-08-15 10:24 | Day surgery (SDC) | payer BC, MEDICARE, SELFPAY ==
[2023-08-13 13:31] VITALS: BMI 25.0
--- NOTE | 2023-08-15 10:43 | EXP.ANES.CKL ---
[facility] Disclaimer: The information contained in this section may have been updated after the patient was seen, as this information can be updated by other users. Medical History Deviated septum Diabetes mellitus type 1 Diabetes mellitus, type 2 History of deviated nasal septum History of transient ischemic attack (TIA) Hyperlipidemia Surgical History History of colonoscopy History of surgery on arm No significant past surgical history Family History Brother Lung cancer Family/Other Family history of cancer Other Family history of diabetes mellitus type II Social History (Updated 08/13/23 @ 13:33 by Manda Larkin RN) Smoking Status: Former smoker smoking status stop date: 12/01/22 alcohol intake: never substance use type: denies use current occupational status: disabled Travel in the last 8 weeks: [place] the [place] household members: spouse housing: house marital status: education level: high school caffeine: No special keiry needs: No do you feel safe at home: Yes victim of physical abuse: No victim of emotional abuse: No victim of sexual abuse: No would you like helpful sources: No [facility] Anesthesia Checklist Patient Identification Patient Identification: Arm Band Structural Data Admitted From: Home Planned Operative Procedure/s: colonoscopy Consent for Planned Operative Procedure(s) Verified: Yes Verified Documents: Surgical Consent and History and Physical NPO Status Verified Time NPO: 00:00 Additional verifications Anesthesia Reactions: No Airway Assessment Mallampati Score:: Class II C-Spine Mobility Assessed: Yes TMJ Mobility Assessed: Yes Dentition: Edentulous Neurological Assessment Level of Consciousness: Awake and Alert Anesthesia Plan Anesthesia Risk discussed: Yes Anesthesia Plan: Verified ASA Class: III Anesthesia Type: MAC
[2023-08-15 10:48] VITALS: BP 150/83; PULSE 67; RESP 18; TEMP 36.3; O2SAT 98
[2023-08-15 11:04] LABS: POC Glucose,Bedside 155 (70-110)
--- NOTE | 2023-08-15 11:58 | HMH.SCOPE ---
Procedure: Date: 08/15/23 Patient Date of :: 1970 Procedure Performed:: Total colonoscopy with polypectomy using snare Indications:: Patient is a 52-year-old male whose primary care provider is Dr. Aldo Chavez. Patient has a history of insulin-dependent diabetes, previous stroke, hypertension, lumbar compression fracture, hypertriglyceridemia. There is no definite known history of colon cancer in the family but he states that his brother had of metastatic, stomach cancer . Patient had positive Cologuard. He was scheduled for colonoscopy with gastroenterology and attempt was made on 05/14/2023 but he had a poor preparation. Patient was given a 2-day preparation and underwent repeat colonoscopy last week on 07/09/2023. Patient was found to have fair preparation. There were numerous polyps removed. He had a total of at least 10 tubular adenomas. Most of these were in the proximal colon. There was a multilobular polypoid lesion in the ascending colon which was felt to not be able to be removed. He was sent for surgical consultation for consideration of right colon resection. The area was marked endoscopically. I reviewed the endoscopic images. I discussed the options with the patient. Before proceeding with immediate resection I will plan for follow-up colonoscopy to reassess the area. I explained to him that when reevaluated it is possible this could be removed endoscopically. It is also possible he still could require resection. The other potential exists that it could be removed with aggressive polypectomy with the understanding that this could potentially result in perforation which could prompt urgent surgical resection. Performing Provider:: Rogelio Cordova MD Referring Provider:: . Sedation:: MAC sedation Procedure:: Patient history was obtained and appropriate physical examination was performed. Patient's medications and allergies were reviewed. Informed consent was obtained after explaining the benefits, alternatives, and risks of the procedure including, but not limited to, bleeding, perforation, missed lesions, and adverse reaction to anesthesia medications. Patient was transported to endoscopy procedure room. Patient was connected to monitoring devices. Throughout the procedure the patient's blood pressure, pulse, and oxygen saturations were monitored continuously. Patient identification and planned procedure were verified by the staff. Patient was positioned in lateral decubitus position. Digital anorectal exam was performed. Variable stiffness Olympus colonoscope was inserted and advanced under direct visualization to the cecum. Adequacy of the colonic preparation was noted. The colonoscope was advanced a short distance into the terminal ileum. The colonoscope was then slowly withdrawn while carefully examining the color, texture, anatomy, and integrity of the mucosoa circumferentially. Within the rectum retroflexion was performed. Colonoscope was then withdrawn. . The previously noted polypoid lesion in the ascending colon just proximal to the hepatic flexure was identified. This appeared to be sessile adenomatous lesion. Using the 13 mm hot snare it was grasped and partial polypectomy was performed. The section of polyp removed required maceration and retrieval using the Draper net. It appeared as though the remainder of the polypoid lesion was then able to be removed with the 13 mm hot snare once again. There was some minor edema and cautery artifact at the site but no definite residual adenomatous tissue. Colonoscope was withdrawn through the colon. In the descending colon there was a moderate adenomatous polyp which required removal with hot snare and retrieval after maceration using an additional Draper net. This was sent as descending colon polyp. In the distal descending colon there were a couple of small diminutive polyps 1 removed with cold cutting snare and 1 removed with biopsy forceps. Colono
[2023-08-15 12:01] VITALS: BP 117/70; PULSE 63; RESP 16; TEMP 36.7; O2SAT 97
--- NOTE | 2023-08-15 12:08 | EXP.GEN.HP ---
HPI HPI HPI: Patient is a 52-year-old male whose primary care provider is Dr. Aldo Chavez. Patient has a history of insulin-dependent diabetes, previous stroke, hypertension, lumbar compression fracture, hypertriglyceridemia. There is no definite known history of colon cancer in the family but he states that his brother had of metastatic, stomach cancer . Patient had positive Cologuard. He was scheduled for colonoscopy with gastroenterology and attempt was made on 05/14/2023 but he had a poor preparation. Patient was given a 2-day preparation and underwent repeat colonoscopy last week on 07/09/2023. Patient was found to have fair preparation. There were numerous polyps removed. He had a total of at least 10 tubular adenomas. Most of these were in the proximal colon. There was a multilobular polypoid lesion in the ascending colon which was felt to not be able to be removed. He was sent for surgical consultation for consideration of right colon resection. The area was marked endoscopically. I reviewed the endoscopic images. I discussed the options with the patient. Before proceeding with immediate resection I will plan for follow-up colonoscopy to reassess the area. I explained to him that when reevaluated it is possible this could be removed endoscopically. It is also possible he still could require resection. The other potential exists that it could be removed with aggressive polypectomy with the understanding that this could potentially result in perforation which could prompt urgent surgical resection. [facility] Disclaimer: The information contained in this section may have been updated after the patient was seen, as this information can be updated by other users. Medical History Deviated septum Diabetes mellitus type 1 Diabetes mellitus, type 2 History of deviated nasal septum History of transient ischemic attack (TIA) Hyperlipidemia Surgical History History of colonoscopy History of surgery on arm No significant past surgical history Family History Brother Lung cancer Family/Other Family history of cancer Other Family history of diabetes mellitus type II Social History Smoking Status: Former smoker smoking status stop date: 12/01/22 alcohol intake: never substance use type: denies use current occupational status: disabled Travel in the last 8 weeks: [place] the [place] household members: spouse housing: house marital status: education level: high school caffeine: No special keiry needs: No do you feel safe at home: Yes victim of physical abuse: No victim of emotional abuse: No victim of sexual abuse: No would you like helpful sources: No Meds Home Medications and Allergies Home Medications Medication Instructions Recorded Confirmed Type atorvastatin 80 mg tablet 80 mg PO DAILY Cholesterol 04/15/19 08/13/23 History omega-3 fatty acids 300 mg capsule 300 mg PO DAILY Supplement 06/15/19 08/13/23 History aspirin 81 mg tablet,delayed 81 mg PO DAILY HEART HEALTH 06/17/19 08/13/23 History release cholecalciferol (vitamin D3) 125 5,000 unit PO DAILY Supplement 06/17/19 08/13/23 History mcg (5,000 unit) capsule montelukast 10 mg tablet 10 mg PO HS ALLERGIES 06/17/19 08/13/23 History clopidogrel 75 mg tablet 75 mg PO DAILY TIA 07/12/21 08/13/23 History duloxetine 60 mg capsule,delayed 60 mg PO DAILY mood 07/12/21 08/13/23 History release (Cymbalta) insulin aspart U-100 100 unit/mL 1 sliding scale dose SQ TID 07/12/21 08/13/23 History subcutaneous solution Diabetes insulin lispro 100 unit/mL 1 unit SQ DAILY Diabetes 07/12/21 08/13/23 History subcutaneous pen (Humalog KwikPen (U-100) Insulin) lisinopril 5 mg tablet 5 mg PO AMAURY
[2023-08-15 12:11] VITALS: BP 130/76; PULSE 67; RESP 16; O2SAT 96
[2023-08-15 12:21] VITALS: BP 126/67; PULSE 63; RESP 16; O2SAT 97
[2023-08-15 12:31] VITALS: BP 130/68; PULSE 64; RESP 16; O2SAT 97
== END 2023-08-15 12:31 | disposition home or self-care (01) ==
PROVIDERS: PCP Family Medicine; Visit Provider Surgery
PROC: 0DJD8ZZ Inspection of Lower Intestinal Tract, Via Natural or Artificial Opening Endoscopic (ICD-10-PCS; CPT 45385; principal; 2023-08-15 13:30)
DX: E11.9 Type 2 diabetes mellitus without complications; D12.2 Benign neoplasm of ascending colon; D12.4 Benign neoplasm of descending colon
CPT/HCPCS: 45385; 82962; J2704

== ENCOUNTER 2024-05-21 07:37 | Day surgery (SDC) | payer BC, MEDICARE, SELFPAY ==
[2024-05-19 11:05] VITALS: BMI 21.9
[2024-05-21 07:56] VITALS: BP 153/73; PULSE 81; RESP 16; TEMP 36.4; O2SAT 100
[2024-05-21] MEDS: LACTATED RINGERS 1000ML 1,000 ML 25 ML IV (08:09)
--- NOTE | 2024-05-21 08:09 | P.PNANES_ITS ---
[facility] Disclaimer: The information contained in this section may have been updated after the patient was seen, as this information can be updated by other users. Medical History HTN (hypertension) History of stroke Deviated septum Diabetes mellitus type 1 History of deviated nasal septum Hyperlipidemia History of transient ischemic attack (TIA) Diabetes mellitus, type 2 Surgical History History of colonoscopy History of surgery on arm No significant past surgical history Family History Brother Lung cancer Family/Other Family history of cancer Other Family history of diabetes mellitus type II Social History Smoking Status: Former smoker tobacco type: cigarettes packs per day: 1 smoking status stop date: 12/01/22 alcohol intake: never substance use type: denies use current occupational status: disabled Travel in the last 8 weeks: None household members: spouse housing: house marital status: education level: high school caffeine: No special keiry needs: No do you feel safe at home: Yes victim of physical abuse: No victim of emotional abuse: No victim of sexual abuse: No would you like helpful sources: No [facility] Anesthesia Checklist Patient Identification Patient Identification: Arm Band and Verbal (Name & ) Structural Data Planned Operative Procedure/s: Colonoscopy Consent for Planned Operative Procedure(s) Verified: Yes Verified Documents: Surgical Consent NPO Status Verified Time NPO: 06:30 (Apple juice due to hypoglycemia) Additional verifications Anesthesia Reactions: No Airway Assessment Mallampati Score:: Class II C-Spine Mobility Assessed: Yes TMJ Mobility Assessed: Yes Dentition: Edentulous Neurological Assessment Hx Seizures: No Numbness or tingling in extremities: No Anesthesia Plan Anesthesia Risk discussed: Yes Anesthesia Plan: Verified ASA Class: III Anesthesia Type: MAC
[2024-05-21 08:10] LABS: POC Glucose,Bedside 191 (70-110)
--- NOTE | 2024-05-21 08:23 | P.PCN_ITS ---
Procedure: Date: 05/21/24 Patient Date of :: 1970 Procedure Performed:: Colonoscopy Indications:: Patient is a 53-year-old male who presents for follow-up colonoscopy due to history of multiple complex large polyps. He has a history of insulin-dependent diabetes, previous stroke, hypertension, lumbar compression fracture, hypertriglyceridemia. Patient had positive Cologuard. He was scheduled for co lonoscopy with gastroenterology and attempt was made on 05/14/2023 but he had a poor preparation. Patient was given a 2-day preparation and underwent repeat colonoscopy last week on 07/09/2023. Patient was found to have fair preparation. There were numerous polyps removed. He had a total of at least 10 tubular adenomas. Most of these were in the proximal colon. There was a multilobular polypoid lesion in the ascending colon which was felt to not be able to be removed. I performed colonoscopy on 08/15/2023. Colonoscopy revealed a polypoid masslike lesion just proximal to the hepatic flexure which was removed in a piecemeal fashion in its entirety using hot snare. He also had moderately large descending colon polyp removed with hot snare and a couple of additional descending colon polyps. All of these lesions returned as tubular adenoma without any dysplasia. Therefore, the patient had a total of 14 adenomatous polyps removed during his colonoscopies in 2022 including these large masslike tubular adenomas. I recommended a repeat colonoscopy in approximately 6 months to reassess for local recurrence or development of any additional polyps given his propensity for polyp formation. He presented for colonoscopy. He had only stopped his aspirin and Plavix a couple days prior. . Performing Provider:: Rogelio Cordova MD Referring Provider:: Aldo Chavez MD Sedation:: MAC sedation Procedure:: Patient history was obtained and appropriate physical examination was performed. Patient's medications and allergies were reviewed. Informed consent was obtained after explaining the benefits, alternatives, and risks of the procedure including, but not limited to, bleeding, perforation, missed lesions, and adverse reaction to anesthesia medications. Patient was transported to endoscopy procedure room. Patient was connected to monitoring devices. Throughout the procedure the patient's blood pressure, pulse, and oxygen saturations were monitored continuously. Patient identi fication and planned procedure were verified by the staff. Patient was positioned in lateral decubitus position. Digital anorectal exam was performed. Variable stiffness Olympus colonoscope was inserted and advanced under direct visualization to the cecum. Adequacy of the colonic preparation was noted.The colonoscope was then slowly withdrawn while carefully examining the color, texture, anatomy, and integrity of the mucosoa circumferentially. Colonoscope was then withdrawn. Impression: He had a very poor colonic preparation. This was unable to be cleared with high-volume trans colonoscopic irrigation and suctioning. There were no obstructing masses. Previously noted Mirna ink site in the ascending colon was noted. Visualization was poor but there was no evidence of any definite recurrence. Colonoscope was withdrawn. Visualization was poor and colon could not be fully cleared. In the rectum there was noted to be a moderate adenomatous appearing polyp. Given his ongoing anticoagulation this was not removed. Colonoscope was withdrawn. . Findings:: Poor prep No obvious large masses or obstructing lesions Moderate rectal adenomatous appearing polyp, not removed due to anticoagulation. . Recommendations:: Repeat colonoscopy with maximum multi day prep and off anticoagulants for at least 5 days. Complications:: None immediately apparent Estimated blood obtained (mL): 0 Colonoscopy Component Colonoscopy Component Was a colonoscopy performed during today's procedure?: Yes Recommended follow up colonoscopy of at least 10 years?: No If no, follow up colonoscopy recommended in ___ years?: As soon as possible Reason for not recommending >/= 10 yr follow-up interval?: See above
[2024-05-21 09:04] VITALS: BP 85/49; PULSE 75; RESP 18; TEMP 36.9; O2SAT 100
[2024-05-21 09:14] VITALS: BP 93/55; PULSE 75; RESP 18; O2SAT 96
[2024-05-21 09:24] VITALS: BP 113/61; PULSE 77; RESP 18; O2SAT 99
[2024-05-21 09:33] VITALS: BP 114/71; PULSE 79; RESP 18; O2SAT 98
== END 2024-05-21 09:34 | disposition home or self-care (01) ==
PROVIDERS: PCP Family Medicine; Visit Provider Surgery
PROC: 0DJD8ZZ Inspection of Lower Intestinal Tract, Via Natural or Artificial Opening Endoscopic (ICD-10-PCS; CPT 45378; principal; 2024-05-21 08:30)
DX: D12.8 Benign neoplasm of rectum (principal); Z09 Encounter for follow-up examination after completed treatment for conditions other than malignant neoplasm; Z86.010 Personal history of colon polyps; E11.9 Type 2 diabetes mellitus without complications; Z79.01 Long term (current) use of anticoagulants; Z79.4 Long term (current) use of insulin
CPT/HCPCS: 45378; 82962; J7120

== ENCOUNTER 2024-05-31 06:49 | Day surgery (SDC) | payer BC, MEDICARE, SELFPAY ==
[2024-05-27 13:24] VITALS: BMI 20.9
[2024-05-31] MEDS: LACTATED RINGERS 1000ML 1,000 ML 25 ML IV (07:20)
[2024-05-31 07:24] VITALS: BP 163/85; PULSE 80; RESP 18; TEMP 36.3; O2SAT 99
--- NOTE | 2024-05-31 07:38 | P.HP_ITS ---
HPI HPI HPI: Patient presents for follow-up colonoscopy. He has a history of insulin- dependent diabetes, previous stroke, hypertension, lumbar compression fracture, hypertriglyceridemia. Patient had positive Cologuard. He was scheduled for colonoscopy with gastroenterology and attempt was made on 05/14/2023 but he had a poor preparation. Patient was given a 2-day preparation and underwent repeat colonoscopy last week on 07/09/2023. Patient was found to have fair preparation. There were numerous polyps removed. He had a total of at least 10 tubular adenomas. Most of these were in the proximal colon. There was a multilobular polypoid lesion in the ascending colon which was felt to not be able to be r emoved. I performed colonoscopy on 08/15/2023. Colonoscopy revealed a polypoid masslike lesion just proximal to the hepatic flexure which was removed in a piecemeal fashion in its entirety using hot snare. He also had moderately large descending colon polyp removed with hot snare and a couple of additional descending colon polyps. All of these lesions returned as tubular adenoma without any dysplasia. Therefore, the patient had a total of 14 adenomatous polyps removed during his colonoscopies in 2022 including these large masslike tubular adenomas. I recommended a repeat colonoscopy in approximately 6 months to reassess for local recurrence or development of any additional polyps given his propensity for polyp formation. He presented for colonoscopy on 05/21/2024. He had not stopped his aspirin and Plavix. He also had a poor preparation. He was noted to have a distal adenomatous appearing polyp but this was not removed due to ongoing anticoagulation and suboptimal preparation. Plan was for follow- up colonoscopy. [facility] Disclaimer: The information contained in this section may have been updated after the patient was seen, as this information can be updated by other users. Medical History HTN (hypertension) History of stroke Deviated septum Diabetes mellitus type 1 History of deviated nasal septum Hyperlipidemia History of transient ischemic attack (TIA) Diabetes mellitus, type 2 Surgical History History of colonoscopy History of surgery on arm No significant past surgical history Family History Brother Lung cancer Family/Other Family history of cancer Other Family history of diabetes mellitus type II Social History Smoking Status: Former smoker tobacco type: cigarettes packs per day: 1 smoking status stop date: 12/01/22 alcohol intake: never substance use type: denies use current occupational status: disabled Travel in the last 8 weeks: None household members: spouse housing: house marital status: education level: high school caffeine: No special keiry needs: No do you feel safe at home: Yes victim of physical abuse: No victim of emotional abuse: No victim of sexual abuse: No would you like helpful sources: No Review of Systems Review of Systems Review of systems:: pertinent systems reviewed and negative unless documented below Meds Home Medications and Allergies Home Medications Medication Instructions Recorded Confirmed Type atorvastatin 80 mg tablet 80 mg PO DAILY Cholesterol 04/15/19 05/31/24 History omega-3 fatty acids 300 mg capsule 300 mg PO DAILY Supplement 06/15/19 05/31/24 History aspirin 81 mg tablet,delayed 81 mg PO DAILY HEART HEALTH 06/17/19 05/31/24 History release cholecalciferol (vitamin D3) 125 5,000 unit PO DAILY Supplement 06/17/19 05/31/24 History mcg (5,000 unit) capsule montelukast 10 mg tablet 10 mg PO HS ALLERGIES 06/17/19 05/31/24 History clopidogrel 75 mg tablet 75 mg PO DAILY TIA 07/12/21 05/31/24 History duloxetine 60 mg capsule,delayed 60 mg PO DAILY mood 07/12/21 05/31/24 History release (Cymbalta) insulin aspart U-100 100 unit/mL 1 sliding scale dose SQ TID 07/12/21 05/31/24 History subcutaneous solution Diabetes insulin lispro 100 unit/mL 1 unit SQ DAILY Diabetes 07/12/21 05/31/24 History subcutaneous pen (Humalog KwikPen (U-100) Insulin) lisinopril 5 mg tablet 5 mg PO DAILY HTN 07/12/21 05/31/24 History insulin glargine 100 unit/mL 20 unit SQ BID Diabetes 08/13/23 05/31/24 History subcutaneous cartridge New Prescriptions to Start Prescriptions: Allergies Allergy/AdvReac Type Severity Reaction Status Date / Time No Known Allergies Allergy Verified 05/31/24 07:21 Exam Data for Last 24 hours Vital signs and Labs for Last 24 Hours: Temp Pulse Resp BP Pulse Ox O2 Del Method 97.4 F L 80 18 163/85 H 99 Room Air 05/31/24 07:24 05/31/24 07:24 05/31/24 07:24 05/31/24 07:24 05/31/24 07:24 05/31/24 07:24 I & O for Last 24 hours: Intake & Output 05/28/24 05/29/24 05/30/24 05/31/24 11:59 11:59 11:59 11:59 Weight 130 lb *Routine HEENT Exam Head: Present normocephalic Eye: Present EOMI ENT: Present mucous membranes moist *Routine Respiratory Exam Respiratory: Present CTA bilaterally *Routine Cardiovascular Exam Cardiovascular: Absent JVD *Routine Abdominal Exam Abdominal: Present soft *Routine Rectal Exam Rectal:: deferred *Routine Genitalia Exam Genitalia:: deferred Assessment and Plan *Assessment and plan (1) Tubular adenoma: Status: Acute Category: Medical Code(s): D36.9 - Benign neoplasm, unspecified site Plan Plan for colonoscopy
--- NOTE | 2024-05-31 07:43 | P.PNANES_ITS ---
[facility] Disclaimer: The information contained in this section may have been updated after the patient was seen, as this information can be updated by other users. Medical History HTN (hypertension) History of stroke Deviated septum Diabetes mellitus type 1 History of deviated nasal septum Hyperlipidemia History of transient ischemic attack (TIA) Diabetes mellitus, type 2 Surgical History History of colonoscopy History of surgery on arm No significant past surgical history Family History Brother Lung cancer Family/Other Family history of cancer Other Family history of diabetes mellitus type II Social History Smoking Status: Former smoker tobacco type: cigarettes packs per day: 1 smoking status stop date: 12/01/22 alcohol intake: never substance use type: denies use current occupational status: disabled Travel in the last 8 weeks: None household members: spouse housing: house marital status: education level: high school caffeine: No special keiry needs: No do you feel safe at home: Yes victim of physical abuse: No victim of emotional abuse: No victim of sexual abuse: No would you like helpful sources: No [facility] Anesthesia Checklist Patient Identification Patient Identification: Arm Band and Verbal (Name & ) Structural Data Admitted From: Home Planned Operative Procedure/s: Colonoscopy Consent for Planned Operative Procedure(s) Verified: Yes Verified Documents: Surgical Consent and History and Physical NPO Status Verified Time NPO: 00:00 Additional verifications Anesthesia Reactions: No Airway Assessment Mallampati Score:: Class II C-Spine Mobility Assessed: Yes TMJ Mobility Assessed: Yes Dentition: Edentulous Neurological Assessment Level of Consciousness: Awake Hx Seizures: No Numbness or tingling in extremities: No Anesthesia Plan Anesthesia Risk discussed: Yes Anesthesia Plan: Verified ASA Class: III Anesthesia Type: MAC
[2024-05-31 07:51] VITALS: O2SAT 99
[2024-05-31 08:09] LABS: POC Glucose,Bedside 279 (70-110)
--- NOTE | 2024-05-31 08:36 | P.PCN_ITS ---
Procedure: Date: 05/31/24 Patient Date of :: 1970 Procedure Performed:: Total colonoscopy to terminal ileum with multiple polypectomy . Indications:: Patient presents for follow-up colonoscopy. He has a history of insulin- dependent diabetes, previous stroke, hypertension, lumbar compression fracture, hypertriglyceridemia. Patient had positive Cologuard. He was scheduled for colonoscopy with gastroenterology and attempt was made on 05/14/2023 but he had a poor preparation. Patient was given a 2-day preparation and underwent repeat colonoscopy last week on 07/09/2023. Patient was found to have fair preparation. There were numerous polyps removed. He had a total of at least 10 tubular adenomas. Most of these were in the proximal colon. There was a multilobular polypoid lesion in the ascending colon which was felt to not be able to be removed. I performed colonoscopy on 08/15/2023. Colonoscopy revealed a polypoid masslike lesion just proximal to the hepatic flexure which was removed in a piecemeal fashion in its entirety using hot snare. He also had moderately large descending colon polyp removed with hot snare and a couple of additional descending colon polyps. All of these lesions returned as tubular adenoma without any dysplasia. Therefore, the patient had a total of 14 adenomatous polyps removed during his colonoscopies in 2022 including these large masslike tubular adenomas. I recommended a repeat colonoscopy in approximately 6 months to reassess for local recurrence or development of any additional polyps given his propensity for polyp formation. He presented for colonoscopy on 05/21/2024. He had not stopped his aspirin and Plavix. He also had a poor preparation. He was noted to have a probable distal adenomatous appearing polyp but this was not removed due to ongoing anticoagulation and suboptimal preparation. Plan was for follow-up colonoscopy. . Performing Provider:: Rogelio Cordova MD Referring Provider:: Aldo Chavez MD Sedation:: MAC sedation Procedure:: Patient history was obtained and appropriate physical examination was performed. Patient's medications and allergies were reviewed. Informed consent was obtained after explaining the benefits, alternatives, and risks of the procedure including, but not limited to, bleeding, perforation, missed lesions, and adverse reaction to anesthesia medications. Patient was transported to endoscopy procedure room. Patient was connected to monitoring devices. Throughout the procedure the patient's blood pressure, pulse, and oxygen saturations were monitored continuously. Patient identification and planned procedure were verified by the staff. Patient was positioned in lateral decubitus position. Digital anorectal exam was performed. Variable stiffness Olympus colonoscope was inserted and advanced under direct visualization to the cecum. Adequacy of the colonic preparation was noted. The colonoscope was advanced a short distance into the terminal ileum. The colonoscope was then slowly withdrawn while carefully examining the color, texture, anatomy, and integrity of the mucosoa circumferentially. Within the rectum retroflexion was performed. Colonoscope was then withdrawn. Impression: Colonic preparation was good. He did have some redundancy to the sigmoid colon which resulted in some looping requiring abdominal pressure for advancement of the colonoscope to the terminal ileum. There was a tiny diminutive possible adenomatous polyp in the cecum removed with biopsy forceps. In the ascending colon just proximal to the hepatic flexure there were 2 moderately complex adenomatous polyps. Attempt was made to remove 1 of these with the hot snare but this cut through the polyp. Residual tissue was removed with biopsy forceps. The other complex polyp was removed with hot snare. These were sent as ascending colon polyps. In the sigmoid colon there was a tiny diminutive polyp removed with biopsy forceps. The rectosigmoid region there were numerous hyperplastic appearing polyps, larger of these were sampled with biopsy forceps. Retroflexion revealed minimal internal hemorrhoids. Of note there was no evidence of any adenomatous rectal polyp at this time as previously noted. Colonoscope was withdrawn. . Findings:: Polyps as noted above Recommendations:: Given patient's propensity to develop early complex polyps with large amount of polyps on recent colonoscopies recommend repeat colonoscopy 6 months. I may plan for a sigmoidoscopy in several months with preparation using enemas only. Complications:: None immediately apparent Estimated blood obtained (mL): 2 Colonoscopy Component Colonoscopy Component Was a colonoscopy performed during today's procedure?: Yes Recommended follow up colonoscopy of at least 10 years?: No If no, follow up colonoscopy recommended in ___ years?: 6 Reason for not recommending >/= 10 yr follow-up interval?: See above
[2024-05-31 08:39] VITALS: BP 95/40; PULSE 87; RESP 18; TEMP 36.7; O2SAT 100
[2024-05-31 08:49] VITALS: BP 135/75; PULSE 80; RESP 18; O2SAT 100
[2024-05-31 08:59] VITALS: BP 113/70; PULSE 79; RESP 16; O2SAT 100
[2024-05-31 09:09] VITALS: BP 127/68; PULSE 77; RESP 16; O2SAT 100
== END 2024-05-31 09:09 | disposition home or self-care (01) ==
PROVIDERS: PCP Family Medicine; Visit Provider Surgery
PROC: 0DJD8ZZ Inspection of Lower Intestinal Tract, Via Natural or Artificial Opening Endoscopic (ICD-10-PCS; CPT 45385; principal; 2024-05-31 08:05)
DX: Z86.010 Personal history of colon polyps (principal); D12.2 Benign neoplasm of ascending colon; D12.0 Benign neoplasm of cecum; D12.5 Benign neoplasm of sigmoid colon; Z09 Encounter for follow-up examination after completed treatment for conditions other than malignant neoplasm; E11.9 Type 2 diabetes mellitus without complications; Z79.4 Long term (current) use of insulin; K64.8 Other hemorrhoids
CPT/HCPCS: 45385; 45380; 82962; J2704; J7120

== ENCOUNTER 2025-08-03 11:42 | Outpatient (CLI) | payer BC, MEDICARE, SELFPAY ==
--- OUTSIDE RECORDS SUMMARY | 2024-09-16 09:05 | XMS_ITS ---
Author [facility] Address [address] [place] [id number] Care Team Providers Care Dry Chain Operator Name Role Phone Link Razo Primary Care Provider Ronnyvicky Yojana Unavailable [phone] Results Component Value Reference Range Notes P-Culture, Urine Reviewed date:09/20/2024 09:36:28 AM Interpretation: Performing Lab: Notes/Report: Test performed by [facility], [address] , [address], [place] [address] Marc Snowden MD, Manager Technical CLIA: [id number] Specimen Source Urine - Void Culture, Urine See Below See Microbiol ogy Report Staphylococcus epidermidis 25,000-50,000 CFU/ml Staphylococcus epidermidis Sensitivity Panel See Below Organism S.epide Antibiotic INTERP Daptomycin S Gentamicin S Levofloxacin S Linezolid S Moxifloxacin S Nitrofurantoin S Oxacillin S Rifampin S Tetracycline S Vancomycin S S=SUSCEPTIBLE I=INTERMEDIATE R=RESISTANT REASON FOR VISIT Urine Encounters Encounter Location Date Provider Diagnosis [facility] [address] [facility] [address] [place] [id number] 09/16/2024 Yojana Coel UTI (lower urinary tract infection) N39.0 Assessments Encounter Date Diagnosis (ICD Code) Assessment Notes Treatment Notes Treatment Clinical Notes Section Notes 09/16/2024 UTI (lower urinary tract infection) (ICD-10 - N39.0) Plan Of Treatment Next Appt Details Provider Name:Link pantoja, 08/03/2025 11:00:00 AM, [address] [facility] [address] [facility], [address], [place], [id number], Provider Name:Link pantoja, 02/01/2026 01:30:00 PM, [facility], [address], [place], [id number], Progress Notes * VIKTORIA HONG SDOB: [birth year] (54 yo M)Acc No.[id number]:09/16/2024 Patient: VIKTORIA CONTRERAS Provider: NATHALY Aguirre :1970 A ge:53 Y S ex:Male Date:09/16/2024 Address:[address] [place] [address], [phone] Pcp:Link Razo Subjective: * Chief Complaints: * 1 . Urine. * Medical History: Objective: * Vitals: Assessment: * Assessment: 1. U TI (lower urinary tract infection) - N39.0 Plan: * Treatment: Value Reference Range C ulture, Urine See Below - * S pecimen Source Urine - Void - * S ensitivity Panel See Below - * S taphylococcus epidermidis 25,000-50,000 CFU/ml Staphylococcus epidermidis - * IvonneYa anderson 09/17/2024 11:3 2:45 AM > pt started on BactrimWhhumeraYa 09/20/2024 9:36:22 AM > , See phone encounter * Images: Billing Information: * Visit Code: * Procedure Codes: * Electronic signature of NATHALY Espino on 08/03/2025 at 11:58 AM EDT Sign off status: Pending * Provider: NATHALY Aguirre Date: 1 Generated for Alis caballero/Salty/eTransmitting on: 0 08/03/2025 11:58 AM EDT
--- NOTE | 2025-08-03 11:49 | XR_ITS ---
FINAL REPORT CLINICAL HISTORY: RIGHT LEG NUMBESS COMPARISON: None FINDINGS: LUMBOSACRAL SPINE SERIES Five views of the lumbosacral spine were obtained. There is an 80% compression deformity of L2. Mild retropulsion is noted at the superior endplate of L2. There is no prior available for comparison but findings appear chronic. Moderate disc space narrowing is noted at L5-S1 with moderate facet sclerosis. IMPRESSION: Chronic appearing L2 compression deformity. Moderate degenerative changes. Reviewed, Interpreted and Dictated by Titi Yanes MD Transcribed by Manda Mueller Authenticated and [facility]
--- OUTSIDE RECORDS SUMMARY | 2025-08-03 11:56 | XMS_ITS ---
Author Organization Unknown Vital Signs BpStanding BpSitting BpSupine Date Temperature HeartRate Weight Hei ght Spo2 Respiration Bmi HeadCircumference FieldCount TimeRecorded NeckCircumferen ce WaistCircumference Pulse 114/70 01/28 00:00 :00 97.8 57 162,8 5,10 23.3 1 6 06/11/2025 09:00:00 122/80 09/29 00:00 :00 98.1 77 162,9.6 0 5,10 23.3 3 6 06/11/2025 15:00:00 108/58 09/15 00:00 :00 98.4 82 159,9.6 0 5,10 22.9 0 6 06/11/2025 14:45:00
--- OUTSIDE RECORDS SUMMARY | 2025-08-03 11:57 | XMS_ITS | Clinical Summary ---
Author Organization [facility] Address [address] [place] [address] Care Team Providers Care Yard Supervisor Name Role Phone Shane Christensen MD Primary Care Provider [phone] Allergies No known active allergies Medications Aspirin Buf,CaCarb-MgC arb-MgO, 81 MG tablet Take 1 tablet by mouth 1 (one) time each day. 7 Active clopidogrel (Plavix) 75 MG tablet Take 1 tablet (75 mg) by mouth. 0 Active glucagon 1 MG injection Inject 1 mg into the muscle if needed. UAD if unconscious or blood sugar <40 0 Active montelukast (Singulair) 10 MG tablet Take 1 tablet by mouth 1 (one) time each day. 6 Active varenicline (Chantix) 1 MG tablet Take 1 tablet by mouth 1 (one) time each day. 0 Active atorvastatin (Lipitor) 40 MG tablet Take 1 tablet (40 mg) by mouth 1 (one) time each day. Active lisinopril 5 MG tablet Take 1 tablet (5 mg) by mouth 1 (one) time each day. Active DULoxetine (Cymbalta) [address] capsule 4 Active hydrOXYzine HCl (Atarax) 25 MG tablet 4 Active Lagevrio 200 MG capsule TAKE 4 CAPSULES BY MOUTH EVERY 12 HOURS 4 Active QUEtiapine (SEROquel) 50 MG tablet Take 1 tablet (50 mg) by mouth every night. 4 Active acetone, urine, test strip 1 strip if needed for high blood sugar (illness, vomiting). Call clinic if positive. 25 each 2 5 Active glucagon (Baqsimi Two Pack) 3 MG/DOSE powder Nasal Powder Administer 3 mg into a single nostril for hypoglycemia; if no response, may repeat in 15 minutes using a new intranasal device 1 each 3 5 Active omega-3 (Fish Oil) 1200 MG capsule 1 (one) time each day at the same time. Active solifenacin (VESIcare) 5 MG tablet Take 1 tablet (5 mg) by mouth Daily. Active insulin lispro (HumaLOG KWIKPEN) 100 UNIT/ML injection pen Inject 3 units before meals plus 1:50>150. MDD: 30 units 15 mL 3 5 Active Basaglar KwikPen 100 UNIT/ML injection pen INJECT SUBCUTANEOUSLY 20 UNITS EVERY MORNING . TITRATE DIRECTED . MAXIMUM DAILY DOSE: 40 UNITS 30 mL 3 5 Active Insulin Infusion Pump (Tandem Mobi System Starter) kit 5 Active Insulin Infusion Pump Supplies (Tandem Mobi AutoSoft XC Kit) misc 5 Active Insulin Lispro (Admelog, HumaLOG) 100 UNIT/ML injection vialIndication s:Type 1 diabetes mellitus with diabetic neuropathy For use in insulin pump. MDD: 60 units 60 mL 1 5 Active Active Problems Patient Care Coordination No te Formatting of this note migh t be different from the original. \ Problem Noted Date Diagnosed Date Neuropathy 12/24/2021 Hyperlipidemia 12/24/2021 Hypertension 12/24/2021 Stroke 07/01/2019 Type 1 diabetes mellitus with diabetic neuropath y 06/15/2015 Encounters Date Type Department Care Team Description 05/27/2025 9:00 AM EDT Office Visit [facility] Endocrinology [address] [place] [phone] Deborah Rodríguez, DIRECTOR INTEGRATED Type 1 diabetes mellitus with diabetic neuropathy (Primary Dx); Hypoglycemia due to insulin 05/27/2025 Travel from Last 3 Months Family History Medical History Relation Name Comments Diabetes Father COPD Mother Relation Name Status Comments Father Mother Social History Tobacco Use Types Packs/Day Years Used Date Smoking Tobacco: Former Cigarettes Smokeless Tobacco: Never Tobacco Cessation:Counseling Given: Not Answered Alcohol Use Standard Drinks/Week Comments Not Currently 0 (1 standard drink = 0.6 oz pur e alcohol) PHQ-2 Answer Date Recorded Patient Health Questionnaire-2 Score 0 05/27/2025 Sex and Gender Information Value Date Recorded Sex Assigned at Not on file Legal Sex Male 8:15 PM EDT Gender Identity Not on file Sexual Orientation Not on file Last Filed Vital Signs Vital Sign Reading Time Taken Comments Blood Pressure 136/80 05/27/2025 8:57 AM EDT Pulse 74 05/27/2025 8:57 AM EDT Temperature 36.6 C (97.8 F) 03/29/2021 12:57 PM EDT Respiratory Rate - - Oxygen Saturation - - Inhaled Oxygen Concentration - - Weight 71.7 kg (158 lb 1.1 oz) 05/27/2025 8:57 A M EDT Height 172.7 cm (5' 8 ) 05/27/2025 8:57 AM EDT Body Mass Index 24.03 05/27/2025 8:57 AM EDT Plan of Treatment Upcoming Encounters Date Type Department Care Team (Late st Contact Info) Description 08/29/2025 9:20 AM EDT Office Visit [facility] Endocrinology [address] [place] [address] Deborah Rodríguez P, DIRECTOR INTEGRATED [address] [phone] Health Maintenance Due Date Last Done Comments [facility]-HIV Screening 1970 [facility]-Medicare Annual Wellness (AWV) 1970 [facility]-/Child/Adol SDOH Screenings 1970 Diabetes: Dental Exam 1979 [facility]- SDOH Screenings 1987 [facility]-Adult SDOH Screenings 1987 [facility]-DTaP,Tdap,and Td Vaccines (1 - Tdap) 1988 [facility]-Hepatitis B Vaccines (1 of 3 - 19+ 3-dose series) 1988 [facility]-Pneumococcal Vaccine: 50+ Years (1 of 2 - PCV) 1988 CT Colonography 2014 Colonoscopy 2014 FIT-DNA 2014 FIT 2014 FOBT 2014 Sigmoidoscopy 2014 [facility]-Colorectal Cancer Screening 2014 [facility]-Zoster Vaccines (2 of 3) 02/12/2021 12/18/2020 [id number] Vaccine (3 - season) 2024 11/28/2021, 02/07/2021 [facility]-Influenza Vaccine (#1) 2025 [facility]-Diabetes: Hemoglobin A1C 08/26/2025, 12/15/2024, 12/27/2021, Additional history exists [facility]-Depression Screening 05/27/2026 05/27/2025 [facility]-Hepatitis C Screening Completed 04/16/2019 [facility]-Hepatitis A Vaccines Completed 019, 11/05/2018, 06/19/2018 HPV Vaccines Aged Out No longer eligi ble based on patient's age to complete this topic [facility]-HIB Vaccines Aged Out No longer e ligible based on patient's age to complete this topic [facility]-IPV Vaccines Aged Out No longer e ligible based on patient's age to complete this topic [facility]-Rotavirus Vaccines Aged Out No lo nger eligible based on patient's age to complete this topic Procedures Procedure Name Priority Date/Time Associated Diagnosis Comments POCT GLYCOSYLATED HEMOGLOBIN (HGB A1C) Routine 05/27/2025 9:12 AM EDT Type 1 diabetes mellitus with diabetic neuropathy HEPATITIS C ANTIBODY - ED W/REFLEX TO HCV QUANT PCR Routine 04/16/2019 6:00 PM EDT from Last 3 Months or Most Recently Relevant to Health Maintenance Results * (ABNORMAL) POCT glycosylated hemoglobin (Hb A1C) (05/27/2025 9:12 AM EDT) POCT Hemoglobin A1C 7.4 <5.7% Non-Diabet ic % Fwd: [facility] Kit Lot Number [id number] [facility] Kit Expiration Date 02/24 [facility] Blood Venous blood specimen / Unknown 05/27/2025 9:12 AM EDT Deborah Rodríguez DIRECTOR INTEGRATED POINT OF CARE TEST ENTER /EDIT ORDERABLES Final Result [facility] [address] [place] [address] * [place] Hepatitis C Antibody (04/16/2019 6:00 PM EDT) [place] Hepatitis C Ab NEGATIVE Reference Range: Negative [facility]QUEST 04/16/2019 6:00 PM EDT 04/16/2019 6:09 PM EDT Shane Gallardo MD LAB BLOOD ORDERABLES Final Res ult SUNQUEST from Last 3 Months or Most Recently Relevant to Health Maintenance Insurance [facility] MEDICARE Care Teams Yard Supervisor Relationship Specialty Start Date End Date Shane Christensen MD [address] [place] [address] [place] [id number] PCP - General 04/13/21
== END 2025-08-03 23:59 | disposition home or self-care (01) ==
LOC: RAD 11:44
PROVIDERS: PCP Family Medicine; Visit Provider Family Medicine
DX: M47.817 Spondylosis without myelopathy or radiculopathy, lumbosacral region (principal); M48.56XA Collapsed vertebra, not elsewhere classified, lumbar region, initial encounter for fracture
CPT/HCPCS: 72110

== ENCOUNTER 2025-09-16 07:20 | Day surgery (SDC) | payer BC, MEDICARE, SELFPAY ==
[2025-09-15 12:44] VITALS: BMI 25.8
--- NOTE | 2025-09-16 06:07 | EXP.GEN.HP ---
HPI HPI HPI: Patient presents for follow-up colonoscopy. He is a 54-year-old who has a history of insulin-dependent diabetes, previous stroke, hypertension, lumbar compression fracture, hypertriglyceridemia. Patient had positive Cologuard. He was scheduled for colonoscopy with gastroenterology and attempt was made on 05/14/2023 but he had a poor preparation. Patient was given a 2-day preparation and underwent repeat colonoscopy last week on 07/09/2023. Patient was found to have fair preparation. There were numerous polyps removed. He had a total of at least 10 tubular adenomas. Most of these were in the proximal colon. There was a multilobular polypoid lesion in the ascending colon which was felt to not be able to be removed. I performed colonoscopy on 08/15/2023. Colonoscopy revealed a polypoid masslike lesion just proximal to the hepatic flexure which was removed in a piecemeal fashion in its entirety using hot snare. He also had moderately large descending colon polyp removed with hot snare and a couple of additional descending colon polyps. All of these lesions returned as tubular adenoma without any dysplasia. Therefore, the patient had a total of 14 adenomatous polyps removed during his colonoscopies in 2022 including these large masslike tubular adenomas. I recommended a repeat colonoscopy in approximately 6 months to reassess for local recurrence or development of any additional polyps given his propensity for polyp formation. He presented for colonoscopy on 05/21/2024. He had not stopped his aspirin and Plavix. He also had a poor preparation. He was noted to have a probable distal adenomatous appearing polyp but this was not removed due to ongoing anticoagulation and suboptimal preparation. Colonoscopy was done on 05/31/2024 which revealed some redundancy of the sigmoid colon. Colonic preparation was actually good at that time. He had several various sized polyps removed including a couple of moderately complex adenomatous polyps just proximal to the hepatic flexure. These were tubular adenomas as was a cecal polyp. Given his propensity for early development of large complex adenomatous polyps plan was for colonoscopy in 1 year. . [facility] Disclaimer: The information contained in this section may have been updated after the patient was seen, as this information can be updated by other users. Medical History History of colon polyps HTN (hypertension) History of stroke Deviated septum Diabetes mellitus type 1 History of deviated nasal septum Hyperlipidemia History of transient ischemic attack (TIA) Diabetes mellitus, type 2 Surgical History History of colonoscopy History of surgery on arm Family History Brother Lung cancer Family/Other Family history of cancer Other Family history of diabetes mellitus type II Social History (Updated 09/16/25 @ 07:36 by Kendra oBoth RN) Smoking Status: Former smoker tobacco type: cigarettes packs per day: 1 smoking status stop date: 12/01/22 alcohol intake: never substance use type: denies use current occupational status: disabled Travel in the last 8 weeks?: None household members: spouse housing: house marital status: education level: high school caffeine: No special keiry needs: No do you feel safe at home: Yes victim of physical abuse: No victim of emotional abuse: No victim of sexual abuse: No would you like helpful sources: No Have you lived/traveled outside [place] in past 30 days?: No Contact w/someone who lives/traveled outside [place] past 30 days?: No Exposure to someone with infectious disease in past 14 days?: No Do you have a fever (greater than 100.4 F or 38 C)?: No Have you tested positive for COVID-19?: No Exposed to someone with COVID-19 in past 14 days?: No Do you have a sore throat?: No Do you have a cough?: No Do you have any weakness?: No Are you experiencing any nausea/vomitting?: No Do you have any diarrhea?: No Are you experiencing any unusual bleeding?: No Do you have any muscle aches/pain?: No Do you have any abdominal pain?: No Are you experiencing loss of taste or smell?: No Other Medical History Have you received the Flu Vaccine for this season: Yes Have you received the Pneumonia Vaccine: Yes Meds Home Medications and Allergies Home Medications ?Medication ?Instructions ?Recorded ?Confirmed ?Type atorvastatin 80 mg tablet 80 mg PO DAILY Cholesterol 04/15/19 09/15/25 History omega-3 fatty acids 300 mg capsule 300 mg PO DAILY Supplement 06/15/19 09/15/25 History aspirin 81 mg tablet,delayed 81 mg PO DAILY HEART HEALTH 06/17/19 09/15/25 History release cholecalciferol (vitamin D3) 125 5,000 unit PO DAILY Supplement 06/17/19 09/15/25 History mcg (5,000 unit) capsule montelukast 10 mg tablet 10 mg PO HS ALLERGIES 06/17/19 09/15/25 History clopidogrel 75 mg tablet 75 mg PO DAILY TIA 07/12/21 09/15/25 History Held on 07/09/23. Instructions: Resume on 07/13/23. duloxetine 60 mg capsule,delayed 60 mg PO DAILY mood 07/12/21 09/15/25 History release (Cymbalta) insulin aspart U-100 100 unit/mL 1 sliding scale dose SQ TID 07/12/21 09/15/25 History subcutaneous solution Diabetes insulin lispro 100 unit/mL 1 unit SQ DAILY Diabetes 07/12/21 09/15/25 History subcutaneous pen (Humalog KwikPen (U-100) Insulin) lisinopril 5 mg tablet 5 mg PO DAILY HTN 07/12/21 09/15/25 History insulin glargine 100 unit/mL 20 unit SQ BID Diabetes 08/13/23 09/15/25 History subcutaneous cartridge sodium,potassium,mag sulfates 17.5 See Rx Instructions PO .COMPLEX 08/31/25 09/15/25 Rx gram-3.13 gram-1.6 gram oral soln #354 mL (Suprep Bowel Prep Kit) New Prescriptions to Start Prescriptions: Allergies Allergy/AdvReac Type Severity Reaction Status Date / Time No Known Allergies Allergy Verified 09/16/25 07:42 Exam Data for Last 24 hours I & O for Last 24 hours: Intake & Output 09/13/25 09/14/25 09/15/25 09/16/25 11:59 11:59 11:59 11:59 Weight 165 lb Constitutional Constitutional: no acute distress *Routine HEENT Exam Head: Present normocephalic Eye: Present EOMI and PERRL ENT: Present mucous membranes moist *Routine Neck Exam Neck: Present supple; Absent lymphadenopathy *Routine Respiratory Exam Respiratory: Present CTA bilaterally *Routine Cardiovascular Exam Cardiovascular: Present RRR *Routine Abdominal Exam Abdominal: Present soft and normoactive bowel sounds; Absent tenderness *Routine Rectal Exam Rectal:: deferred *Routine Genitalia Exam Genitalia:: deferred *Routine Extremities Exam Extremities: Absent cyanosis, clubbing or edema *Routine Skin Exam Skin: Present warm; Absent rash *Routine Neurological Exam Neurological: Present alert and oriented X3 Assessment and Plan *Assessment and plan (1) Tubular adenoma: Status: Acute Category: Medical Code(s): D36.9 - Benign neoplasm, unspecified site Plan Colonoscopy
[2025-09-16 07:34] VITALS: BP 178/95; PULSE 80; RESP 16; TEMP 36.2; O2SAT 99; BMI 25.8
[2025-09-16] MEDS: LACTATED RINGERS 1000ML 1,000 ML 50 ML IV (07:51)
--- NOTE | 2025-09-16 07:56 | P.PNANES_ITS ---
[facility] Disclaimer: The information contained in this section may have been updated after the patient was seen, as this information can be updated by other users. Medical History History of colon polyps HTN (hypertension) History of stroke Deviated septum Diabetes mellitus type 1 History of deviated nasal septum Hyperlipidemia History of transient ischemic attack (TIA) Diabetes mellitus, type 2 Surgical History History of colonoscopy History of surgery on arm Family History Brother Lung cancer Family/Other Family history of cancer Other Family history of diabetes mellitus type II Social History (Updated 09/16/25 @ 07:36 by Kendra Booth RN) Smoking Status: Former smoker tobacco type: cigarettes packs per day: 1 smoking status stop date: 12/01/22 alcohol intake: never substance use type: denies use current occupational status: disabled Travel in the last 8 weeks?: None household members: spouse housing: house marital status: education level: high school caffeine: No special keiry needs: No do you feel safe at home: Yes victim of physical abuse: No victim of emotional abuse: No victim of sexual abuse: No would you like helpful sources: No Have you lived/traveled outside [place] in past 30 days?: No Contact w/someone who lives/traveled outside [place] past 30 days?: No Exposure to someone with infectious disease in past 14 days?: No Do you have a fever (greater than 100.4 F or 38 C)?: No Have you tested positive for COVID-19?: No Exposed to someone with COVID-19 in past 14 days?: No Do you have a sore throat?: No Do you have a cough?: No Do you have any weakness?: No Are you experiencing any nausea/vomitting?: No Do you have any diarrhea?: No Are you experiencing any unusual bleeding?: No Do you have any muscle aches/pain?: No Do you have any abdominal pain?: No Are you experiencing loss of taste or smell?: No [facility] Anesthesia Checklist Patient Identification Patient Identification: Arm Band Structural Data Admitted From: Home Planned Operative Procedure/s: Colonoscopy Consent for Planned Operative Procedure(s) Verified: Yes Verified Documents: Surgical Consent and History and Physical NPO Status Verified Time NPO: 00:00 Additional verifications Anesthesia Reactions: No Airway Assessment Mallampati Score:: Class II C-Spine Mobility Assessed: Yes TMJ Mobility Assessed: Yes Dentition: Edentulous Neurological Assessment Level of Consciousness: Awake, Alert and Appropriate Anesthesia Plan Anesthesia Risk discussed: Yes Anesthesia Plan: Verified ASA Class: II Anesthesia Type: MAC
[2025-09-16 07:58] LABS: POC Glucose,Bedside 143 gm/dL (70-110)
[2025-09-16 08:17] VITALS: BP 96/52; PULSE 81; RESP 16; TEMP 36.1; O2SAT 98
--- NOTE | 2025-09-16 08:17 | P.PCN_ITS ---
Procedure: Date: 09/16/25 Patient Date of :: 1970 Procedure Performed:: Aborted colonoscopy Indications:: Patient presents for follow-up colonoscopy. He is a 54-year-old who has a history of insulin-dependent diabetes, previous stroke, hypertension, lumbar compression fracture, hypertriglyceridemia. Patient had positive Cologuard. He has had the following colonoscopies: * 05/14/2023 aborted due to poor preparation (performed by Fransico Sheth MD) * 07/09/2023 - fair preparation, at least 10 tubular adenomas removed mostly in the proximal colon. Multilobular polypoid lesion in the ascending colon which was not able to be removed and he was sent for surgical consultation for possible resection. (Fransico Sheth MD) * 08/15/2023 - I performed colonoscopy and was able to remove the lesion proximal to the hepatic flexure in a piecemeal fashion using hot snare. He had several additional polyps removed as well. At least 4 tubular adenomas at this time. * 05/21/2024 - colonoscopy revealed poor preparation. He also had probable distal adenomatous appearing polyp. Polypectomy was not performed as patient had not stopped dual antiplatelet therapy and had a poor preparation. * 05/31/2024 - good colonic preparation. Several complex polyps removed. 3 of these were tubular adenomas. Given his propensity for early development of large complex adenomatous polyps plan was for colonoscopy in 1 year. He underwent preparation with Gavilyte stated that he had good results. . Performing Provider:: Rogelio Cordova MD Referring Provider:: Link Razo MD Sedation:: MAC sedation Procedure:: Patient history was obtained and appropriate physical examination was performed. Patient's medications and allergies were reviewed. Informed consent was obtained after explaining the benefits, alternatives, and risks of the procedure including, but not limited to, bleeding, perforation, missed lesions, and adverse reaction to anesthesia medications. Patient was transported to endoscopy procedure room. Patient was connected to monitoring devices. Throughout the procedure the patient's blood pressure, pulse, and oxygen saturations were monitored continuously. Patient identification and planned procedure were verified by the staff. Patient was positioned in lateral decubitus position. Digital anorectal exam was performed. Variable stiffness Olympus colonoscope was inserted. Within the rectum and rectosigmoid there was particulate opaque stool encountered. Colonoscope was able to be advanced proximal to this. As the colonoscope was advanced to further preparation continued to be poor. This was unable to be cleared with irrigation and suctioning. Colonoscope was advanced to likely transverse colon. Given poor preparation colonoscope was withdrawn. . Findings:: Poor colonic preparation . Recommendations:: Repeat colonoscopy with multiday maximum prep and Linzess. Complications:: None immediately apparent Estimated blood obtained (mL): 0 Colonoscopy Component Colonoscopy Component Was a colonoscopy performed during today's procedure?: Yes Recommended follow up colonoscopy of at least 10 years?: No If no, follow up colonoscopy recommended in ___ years?: See above Reason for not recommending >/= 10 yr follow-up interval?: See above
[2025-09-16 08:27] VITALS: BP 99/60; PULSE 82; RESP 18; O2SAT 99
[2025-09-16 08:37] VITALS: BP 113/66; PULSE 84; RESP 16; O2SAT 98
[2025-09-16 08:47] VITALS: BP 133/67; PULSE 77; RESP 18; O2SAT 99
== END 2025-09-16 08:50 | disposition home or self-care (01) ==
PROVIDERS: PCP Family Medicine; Visit Provider Surgery
PROC: 0DJD8ZZ Inspection of Lower Intestinal Tract, Via Natural or Artificial Opening Endoscopic (ICD-10-PCS; CPT 45378; principal; 2025-09-16 08:30)
DX: R19.5 Other fecal abnormalities (principal); D36.9 Benign neoplasm, unspecified site; I10 Essential (primary) hypertension; E11.9 Type 2 diabetes mellitus without complications; E78.1 Pure hyperglyceridemia; Z86.73 Personal history of transient ischemic attack (TIA), and cerebral infarction without residual deficits; Z86.0101 Personal history of adenomatous and serrated colon polyps; Z87.891 Personal history of nicotine dependence; Z79.4 Long term (current) use of insulin; Z79.02 Long term (current) use of antithrombotics/antiplatelets; Z79.899 Other long term (current) drug therapy
CPT/HCPCS: 45378; 82962; J2003; J2704; J7120